=== PATIENT | male | born 1945 | race Caucasian/White ===

== ENCOUNTER → 2019-01-06 | Outpatient (CLI) | payer MEDICARE, OTHER ==
[~2019-01-06] MED LIST: ALEVE PO; ALPRAZOLAM0.25 MG PO; ASPIRIN81 M1 PO; ATORVASTATIN CA40 MG PO; B-121000 MCG PO; CARVEDILOL6.25 MG PO; CO Q-10200 MG PO; CRESTOR20 MG PO; CYCLOBENZAPRINE10 MG PO; KEFLEX500 MG PO; METHOCARBAMOL750 MG PO; METOPROLOL SUCC50 MG PO; METOPROLOL TART50 MG PO; MEXILETINE HCL150 MG PO; MIRTAZAPINE7.5 MG; PACERONE200 MG PO; PANTOPRAZOLE SO40 MG PO; PLAVIX75 MG PO; POTASSIUM PO; PROTONIX IV40 MG PO; RAMIPRIL2.5 MG PO; RANEXA500 MG PO; SUCRALFATE1 GM PO; TYLENOL PM EX-1 EACH; URINOZINC PROS1 EACH PO
--- NOTE | 2019-01-06 17:38 | Diagnostic Imaging Report ---
CT LUMBAR SPINE WO HISTORY: Low back pain COMPARISON: Report from lumbar CT myelogram dated 07/27/2016 (images not available at time of dictation) TECHNIQUE: Axial CT images of the lumbar spine were obtained without contrast. Coronal and sagittal reconstructions obtained from the axial data. One or more of the following dose reduction techniques were used: Automated exposure control, adjustment of the mA and/or kV according to patient size, and/or utilization of iterative reconstruction technique. DISCUSSION: Postsurgical changes related to posterior fusion at L3-L4 with laminectomies from L2 to L4 are noted. Associated hardware streak artifacts obscure some details. There is no evidence for hardware failure or loosening. Mild bone demineralization also limits evaluation. There are 5 nonrib-bearing lumbar vertebral bodies. Lumbar lordosis is preserved. There is no significant scoliosis. No definite acute fracture or compression deformity is seen. Chronic, segmented right L1 transverse process may be from remote trauma. Chronic, osseous defects in the bilateral medial iliac bones are likely from remote surgery. No gross spinal canal mass is seen. Posterior incision changes are present. There is paraspinal muscle atrophy at the lumbosacral junction. The paravertebral and paraspinal soft tissues are otherwise unremarkable. Mild to moderate multilevel spondylotic changes are present. Mild bilateral sacroiliac degenerative changes are present as well. L1-L2: There is mild retrolisthesis of L1 on L2. No gross canal or foraminal stenosis. L2-L3: There is mild retrolisthesis of L2 on L3. Mild to moderate right and moderate left foraminal stenoses due to disc bulge and facet arthrosis. No gross canal stenosis. L3-L4: Fusion level without gross foraminal stenosis. The spinal canal is poorly visualized due to streak artifact. L4-L5: The L4 and L5 vertebral bodies are partially fused. No gross canal or foraminal stenosis. L5-S1: Moderate right and mild to moderate left foraminal stenoses due to disc bulge and facet arthrosis. No gross canal stenosis. There is prominent facet arthrosis on the right. IMPRESSION: 1. Postsurgical changes related to posterior fusion at L3-L4 with laminectomies from L2 to L4. The L4 and L5 vertebral bodies are also partially fused. 2. Otherwise, no definite acute osseous abnormalities. 3. Mild to moderate multilevel spondylosis without gross canal stenosis. Please note that the spinal canal at L3-L4 is poorly visualized due to streak artifact. 4. Multilevel degenerative foraminal stenoses - mild to moderate right and moderate left at L2-L3; moderate right and mild to moderate left at L5-S1. 5. Mild bilateral sacroiliac degenerative changes. Signed by: Dr. Pal Hernandez M.D. on 01/06/2019 5:35 PM
== END ==
LOC: CT 14:37
PROVIDERS: ATTEND Family Medicine
DX: M54.5 Low back pain (principal)
CPT/HCPCS: 72131

== ENCOUNTER 2019-07-17 16:47 | Observation (INO) | payer MEDICARE, OTHER ==
[~2019-07-17] VITALS: Ht 177.8 cm; Wt 98.4 kg
--- OUTSIDE RECORDS SUMMARY | 2019-07-17 16:52 | XMS REPORT | Summary of Care ---
Author Author [facility] Organization [facility] Address Unknown Phone Unavailable Encounter PORSHA Campos(ELIAZAR) [id number] Date(s): 01/03/16 - 01/03/16 [facility] [address] [employer] provided by [employer] [facility] [employer] [place] [address]- Discharge Disposition: Home Attending Physician: Asia Aguirre MD Admitting Physician: Asia Aguirre MD Referring Physician: Asia Aguirre MD Vital Signs 1 2 3 Most recent to oldest [Reference Range]: 177.8 cm (01/03/16 9:51 AM) Height 159/74 mmHg *HI* (01/03/16 8:45 PM) 159/74 mmHg *HI* (01/03/16 8:30 PM) 159/74 mmHg *HI* (01/03/16 8:15 PM) Blood Pressure [90-140/60-90 mmHg] 91.818 kg (01/03/16 9:51 AM) Weight 29.04 m2 (01/03/16 9:51 AM) Body Mass Index Problem List Condition Effective Dates Status Health Status Informant Acid Resolved reflux(Confirmed) Angina(Confirmed) Resolved Anxiety(Confirmed) Resolved Coronary artery Resolved bypass grafts x 4(Confirmed) Rotator cuff 06/09/10 Active syndrome1, 2 1Data migrated from [employer] on 06/18/15. 2Data migrated from [employer] on 06/18/15. Allergies, Adverse Reactions, Alerts Substance Reaction Severity Status NKDA Active Medications aspirin 325 mg tablet 325 mg=1 tab, PO, Daily, # 30 tab, 0 Refill(s) Start Date: 01/03/16 Status: Ordered carvedilol 6.25 mg, 1 tab, Route: PO, Drug form: TAB, Daily, Dosing Weight 91.818, kg, Star t date: 01/04/16 9:00:00, Duration: 30 day, Stop date: 02/02/16 9:00:00 Notes: Give with food. (Same As: Coreg) Start Date: 01/04/16 Stop Date: 01/04/16 Status: Discontinued Crestor 20 mg, Route: PO, Drug form: TAB, Daily, Dosing Weight 91.818, kg, Start date: 0 01/04/16 9:00:00, Duration: 30 day, Stop date: 02/02/16 9:00:00 Start Date: 01/04/16 Stop Date: 01/03/16 Status: Discontinued gabapentin 300 mg oral capsule 300 mg, 1 cap, Route: PO, Drug form: CAP, BID, Dosing Weight 91.818, kg, Start d ate: 01/03/16 17:00:00, Duration: 30 day, Stop date: 02/02/16 9:00:00 Notes: (Same as: Neurontin) Start Date: 01/03/16 Stop Date: 01/04/16 Status: Discontinued Lipitor 40 mg, 1 tab, Route: PO, Drug form: TAB, Daily, Start date: 01/04/16 9:00:00, Du ration: 30 day, Stop date: 02/02/16 9:00:00 Notes: (Same as: Lipitor) Start Date: 01/04/16 Stop Date: 01/04/16 Status: Discontinued morphine Sulfate 2 mg, Route: IVP, ONCE, Dosing Weight 91.818, kg, Start date: 01/03/16 15:20:00, Stop date: 01/03/16 15:20:00 Start Date: 01/03/16 Stop Date: 01/03/16 Status: Completed [place] 5/325 oral tablet 1 tab, Route: PO, Drug Form: TAB, Dosing Weight 91.818, kg, Q4H, PRN Pain Score 1-3, Start date: 01/03/16 13:44:00, Duration: 30 day, Stop date: 02/02/16 13:43: 00 Notes: (Same as: [place] 325/5) Do not exceed 4gm/day of acetaminophen. Start Date: 01/03/16 Stop Date: 01/04/16 Status: Discontinued pantoprazole 40 mg, 1 tab, Route: PO, Drug form: ECTAB, Daily, Dosing Weight 91.818, kg, Star t date: 01/04/16 9:00:00, Duration: 30 day, Stop date: 02/02/16 9:00:00 Notes: Tablet should not be chewed or crushed.(Same as: Protonix) Start Date: 01/04/16 Stop Date: 01/04/16 Status: Discontinued ramipril 2.5 mg, 1 cap, Route: PO, Drug form: CAP, BID, Dosing Weight 91.818, kg, Start d ate: 01/03/16 17:00:00, Duration: 30 day, Stop date: 02/02/16 9:00:00 Notes: (Same as:Altace) Start Date: 01/03/16 Stop Date: 01/04/16 Status: Discontinued Sodium Chloride 0.9% IV 1,000 mL 1,000 mL, Rate: 100 ml/hr, Infuse over: 10 hr, Route: IV, Dosing Weight 95.455 k g, Total Volume: 1,000, Start date: 01/03/16 9:27:00, Duration: 30 day, Stop ramila e: 02/02/16 9:26:00 Start Date: 01/03/16 Stop Date: 01/04/16 Status: Discontinued Results BLOOD BANK RESULTS Most recent to 1 oldest [Reference Range]: ABO/Rh B POS *Unknown* (01/03/16 9:25 AM) Antibody Scrn Negative (01/03/16 9:25 AM) ELECTROLYTES Most recent to 1 oldest [Reference Range]: Sodium Lvl [135-145 139 mEq/L mEq/L] (01/03/16 9:54 AM) Potassium Lvl 4.1 mEq/L [3.5-5.1 mEq/L] (01/03/16 9:54 AM) Chloride Lvl [95-109 106 mEq/L mEq/L] (01/03/16 9:54 AM) CO2 [24-32 mEq/L] 26 mEq/L (01/03/16 9:54 AM) AGAP [10.0-20.0 11.1 mEq/L mEq/L] (01/03/16 9:54 AM) CHEM PANEL Most recent to 1 oldest [Reference Range]: Creatinine Lvl 1.22 mg/dL [0.50-1.40 mg/dL] (01/03/16 9:54 AM) eGFR 60 mL/min/1.73m2 1 *NA* (01/03/16 9:54 AM) BUN [7-22 mg/dL] 29 mg/dL *HI* (01/03/16 9:54 AM) Glucose Lvl [70-99 104 mg/dL mg/dL] *HI* (01/03/16 9:54 AM) Calcium Lvl 8.8 mg/dL [8.5-10.5 mg/dL] (01/03/16 9:54 AM) Magnesium Lvl 2.2 mg/dL [1.8-2.4 mg/dL] (01/03/16 9:54 AM) 1Result Comment: The eGFR is calculated using the CKD-EPI formula. In most young, healthy individuals the eGFR will be >90 mL/min/1.73m2. The eGFR declines with age. An eGFR of 60-89 may be normal in some populations, particularly the elderly, for whom the CKD-EPI formula has not been extensively validated. Use of the eGFR is not recommended in the following populations: Individuals with unstable creatinine concentrations, including patients and those with serious co-morbid conditions. Patients with extremes in muscle mass or diet. The data above are obtained from the National Kidney Disease Education Program ( NKDEP) which additionally recommends that when the eGFR is used in patients with extremes of body mass index for purposes of drug dosing, the eGFR should be mul tiplied by the estimated BMI. HEMATOLOGY Most recent to 1 oldest [Reference Range]: WBC [3.7-10.4 K/CMM] 11.4 K/CMM *HI* (01/03/16 9:54 AM) RBC [4.70-6.10 4.97 M/CMM M/CMM] (01/03/16 9:54 AM) Hgb [14.0-18.0 g/dL] 14.1 g/dL (01/03/16 9:54 AM) Hct [42.0-54.0 %] 43.7 % (01/03/16 9:54 AM) MCV [80.0-94.0 fL] 88.0 fL (01/03/16 9:54 AM) MCH [27.0-31.0 pg] 28.3 pg (01/03/16 9:54 AM) MCHC [32.0-36.0 32.1 g/dL g/dL] (01/03/16 9:54 AM) RDW [11.5-14.5 %] 14.2 % (01/03/16 9:54 AM) Platelet [133-450 180 K/CMM K/CMM] (01/03/16 9:54 AM) MPV [7.4-10.4 fL] 7.4 fL (01/03/16 9:54 AM) Segs [45.0-75.0 %] 80.1 % *HI* (01/03/16 9:54 AM) Lymphocytes 9.0 % [20.0-40.0 %] *LOW* (01/03/16 9:54 AM) Monocytes [2.0-12.0 6.4 % %] (01/03/16 9:54 AM) Eosinophils [0.0-4.0 1.5 % %] (01/03/16 9:54 AM) Basophils [0.0-1.0 3.0 % %] *HI* (01/03/16 9:54 AM) Segs-Bands # 9.1 K/CMM [1.5-8.1 K/CMM] *HI* (01/03/16 9:54 AM) Lymphocytes # 1.0 K/CMM [1.0-5.5 K/CMM] (01/03/16 9:54 AM) Monocytes # [0.0-0.8 0.7 K/CMM K/CMM] (01/03/16 9:54 AM) Eosinophils # 0.2 K/CMM [0.0-0.5 K/CMM] (01/03/16 9:54 AM) Basophils # [0.0-0.2 0.3 K/CMM K/CMM] *HI* (01/03/16 9:54 AM) RBC Morph Normal (01/03/16 9:54 AM) Plt Morph Normal (01/03/16 9:54 AM) PT [12.0-14.7 14.0 seconds seconds] (01/03/16 9:54 AM) INR [0.85-1.17] 1.05 (01/03/16 9:54 AM) POC Activated 195 seconds Clotting Time *NA* (01/03/16 3:05 PM) PTT [22.9-35.8 27.7 seconds seconds] (01/03/16 9:54 AM) Immunizations No data available for this section Procedures Procedure Date Related Diagnosis Body Site Coronary artery bypass grafts x 5 Fusion Incision and drainage of wound Knee joint operation Laminectomy Shoulder joint operations Social History Social History Type Response Smoking Status Smoker, current status unknown; Type: Cigarettes; Exposure to Tobacco Smoke None; Cigarette Smoking Last 365 Days No; Reg Smoking Cessation Counseling No Assessment and Plan No data available for this section
--- OUTSIDE RECORDS SUMMARY | 2019-07-17 16:52 | XMS REPORT ---
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 Active Problem Stented coronary artery Z95.5 Active Problem Patient unable to exercise Z72.89 Active Problem Essential (primary) hypertension I10 Active Problem Hypercholesteremia E78.00 Active Problem Carotid bruit R09.89 Active Problem 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 Active Problem Abnormal EKG R94.31 Active Assessment 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
--- OUTSIDE RECORDS SUMMARY | 2019-07-17 16:52 | XMS REPORT | Summary of Care ---
Author Author [facility] Outpatient Imaging [facility] Address Unknown Phone Unavailable Encounter HQ Dilma_delvin(FIN) [id number] Date(s): 08/05/17 - 08/05/17 [facility] [address] [facility], [address] [place] [phone] Discharge Disposition: Home or Self Care Attending Physician: Buddy Plummer MD Vital Signs No data available for this section Problem List Condition Effective Dates Status Health Status Informant Acid Resolved reflux(Confirmed) Angina(Confirmed) Resolved Anxiety(Confirmed) Resolved 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 2Data migrated from [employer] on 06/18/15. Allergies, Adverse Reactions, Alerts Substance Reaction Severity Status NKDA Active Medications No data available for this section Results No data available for this section Immunizations No data available for this section [...]
--- OUTSIDE RECORDS SUMMARY | 2019-07-17 16:52 | XMS REPORT | Summary of Care ---
Author Author [facility] Organization [facility] Address Unknown Phone Unavailable Encounter HQ Jacobontr_delvin(FIN) [id number] Date(s): 07/05/19 - 07/05/19 [facility] [address] [place] [address]- Discharge Disposition: Home or Self Care Attending Physician: Tawanda Roberson MD Referring Physician: Tawanda Roberson MD Vital Signs No data available for this section Problem List Condition Effective Dates Status Health Status Informant Acid Resolved reflux(Confirmed) Angina(Confirmed) Resolved Anxiety(Confirmed) Resolved 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 2Data migrated from [employer] on 06/18/15. Allergies, Adverse Reactions, Alerts No Known Medication Allergies Medications No data available for this section Results No data available for this section Immunizations No data available for this section Procedures Procedure Date Related Diagnosis Body Site Status Coronary artery bypass grafts x 5 Completed Fusion Completed Incision and drainage of wound Completed Knee joint operation Completed Laminectomy Completed Shoulder joint operations Completed Social History Social History Type Response Smoking Status Smoker, current status unknown; Type: Cigarettes; Exposure to Tobacco Smoke None; Cigarette Smoking Last 365 Days No; Reg Smoking Cessation Counseling No entered on: 01/03/16 Assessment and Plan No data available for this section
--- OUTSIDE RECORDS SUMMARY | 2019-07-17 16:52 | XMS REPORT | Summary of Care ---
Author Organization Unknown Address Unknown Phone Unavailable Encounter HQ Beth(ELIAZAR) [id number] Date(s): 06/29/14 - 07/02/14 [facility] [id number] [place] [address] - [facility] Discharge Disposition: Home Physician Attending: Deric Brandon DO Physician Admitting: Deric Brandon DO Reason for Visit SEPSIS, ABDOMINAL PAIN Vital Signs 1 2 3 Most recent to oldest [Reference Range]: 175.26 cm (06/30/14 5:13 PM) 177.8 cm (06/29/14 12:42 AM) Height 97 kg (07/02/14 6:31 AM) 97.9 kg (07/01/14 7:52 AM) 100.7 kg (07/01/14 12:00 AM) Current Weight 98.6 DegF (07/02/14 12:27 PM) 98.1 DegF (07/02/14 8:19 AM) 98.6 DegF (07/02/14 4:07 AM) Temperature Oral [96.4-99.1 DegF] 149 mmHg *HI* (07/02/14 12:27 PM) 145 mmHg *HI* (07/02/14 8:19 AM) 121 mmHg (07/02/14 4:07 AM) Systolic Blood Pressure [90-140 mmHg] 75 mmHg (07/02/14 12:27 PM) 73 mmHg (07/02/14 8:19 AM) 55 mmHg *LOW* (07/02/14 4:07 AM) Diastolic Blood Pressure [60-90 mmHg] 19 BRMIN (07/02/14 12:27 PM) 18 BRMIN (07/02/14 8:19 AM) 20 BRMIN (07/02/14 4:07 AM) Respiratory Rate [14-20 BRMIN] 76 bpm (07/02/14 12:27 PM) 75 bpm (07/02/14 8:19 AM) 79 bpm (07/02/14 4:07 AM) Peripheral Pulse Rate [60-100 bpm] 95.455 kg (06/30/14 5:13 PM) 100 kg (06/29/14 12:42 AM) Weight 31.08 m2 (06/30/14 5:13 PM) 31.63 m2 (06/29/14 12:42 AM) Body Mass Index Problem List Condition Effective Dates Status Health Status Informant 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 (Same as: Tylenol) Start Date: 06/29/14 Stop Date: 07/02/14 Status: Discontinued AMIODarone + Dextrose 5% in Water 100 mL 150 mg, Route: IVPB, ONCE, Dosing Weight 100, kg, Start date: 06/29/14 20:11:00, Stop date: 06/29/14 20:11:00 Start Date: 06/29/14 Stop Date: 06/29/14 Status: Deleted AMIODarone 900 mg in D5W 500 ml IV 900 mg 900 mg, 482 mL, Rate: 1 mg/min for 6 hours, then reduce to 0.5 mg/min, Dosing We ight 100, kg, Route: IV, Total Volume: 482, Start Date: 06/29/14 20:11:00, Durat ion: 30 day, Stop date: 07/29/14 20:10:00, Replace Every: 24 hr Start Date: 06/29/14 Stop Date: 06/29/14 Status: Deleted aspirin 81 mg tablet, enteric coated 81 mg, 1 tab, Route: PO, Drug form: ECTAB, Daily, Dosing Weight 100, kg, Start d ate: 06/29/14 9:00:00, Duration: 30 day, Stop date: 07/28/14 9:00:00 Notes: Do not crush or chew.(Same As: Ecotrin) Start Date: 06/29/14 Stop Date: 07/02/14 Status: Discontinued atropine 0.5 mg, 5 mL, Route: IVP, Drug form: INJ, ONCE, Dosing Weight 95.455, kg, PRN Br adycardia, Start date: 07/02/14 0:12:00, for symptomatic bradycardia HR <40 Start Date: 07/02/14 Stop Date: 07/02/14 Status: Discontinued carvedilol 12.5 mg, 1 tab, Route: PO, Drug form: TAB, Daily, Dosing Weight 100, kg, Start d ate: 06/29/14 9:00:00, Stop date: 07/28/14 9:00:00 Notes: Give with food. (Same As: Coreg) Start Date: 06/29/14 Stop Date: 06/30/14 Status: Discontinued Cipro I.V. 400 mg/200 mL intravenous solution 400 mg, 200 mL, Route: IVPB, Drug form: INJ, [id number], Dosing Weight 100, kg, Sta rt date: 06/29/14 8:00:00, Duration: 30 day, Stop date: 07/28/14 20:00:00 Notes: Do not refrigerate Start Date: 06/29/14 Stop Date: 07/02/14 Status: Discontinued cloNIDine 0.1 mg oral tablet 0.1 mg, 1 tab, Route: PO, Drug form: TAB, Q8H, Dosing Weight 100, kg, PRN Elevat ed BP, Start date: 06/29/14 7:21:00, Duration: 30 day, Stop date: 07/29/14 7:20: 00, SBP >160 Notes: (Same As: Catapres) Start Date: 06/29/14 Stop Date: 07/02/14 Status: Discontinued Colace 100 mg oral capsule 100 mg=1 cap, PO, BID, Constipation, # 60 cap, 0 Refill(s) Start Date: 07/02/14 Status: Ordered Coreg 25 mg, 2 tab, Route: PO, Drug form: TAB, Q12H, Dosing Weight 95.455, kg, Start d ate: 06/30/14 21:00:00, Duration: 30 day, Stop date: 07/30/14 9:00:00 Notes: Give with food. (Same As: Coreg) Start Date: 06/30/14 Stop Date: 07/02/14 Status: Discontinued Coreg 12.5 mg, 1 tab, Route: PO, Drug form: TAB, ONCE, Dosing Weight 95.455, kg, Start date: 06/30/14 18:07:00, Stop date: 06/30/14 18:07:00 Notes: Give with food. (Same As: Coreg) Start Date: 06/30/14 Stop Date: 06/30/14 Status: Completed Crestor 20 mg, 2 tab, Route: PO, Drug form: TAB, Daily, Dosing Weight 100, kg, Start ramila e: 06/29/14 9:00:00, Duration: 30 day, Stop date: 07/28/14 9:00:00 Notes: (Same As: Crestor) Start Date: 06/29/14 Stop Date: 07/02/14 Status: Discontinued Dulcolax Laxative 10 mg, 1 supp, Route: UT, Drug form: SUPP, ONCE, Dosing Weight 100, kg, PRN as n eeded for constipation, Priority: STAT, Start date: 06/29/14 17:06:00 Notes: (Same As: Dulcolax, Bisco-Lax) Start Date: 06/29/14 Stop Date: 06/29/14 Status: Completed enoxaparin 30 mg, 0.3 mL, Route: SUB-Q, Drug form: INJ, [id number], Dosing Weight 100, kg, St art date: 06/29/14 8:00:00, Duration: 30 day, Stop date: 07/28/14 8:00:00 Notes: (Same as: Lovenox) Start Date: 06/29/14 Stop Date: 07/02/14 Status: Discontinued Flagyl 500 mg, 100 mL, Route: IVPB, Drug form: INJ, [id number], Dosing Weight 100, kg, Star t date: 06/29/14 8:00:00, Duration: 30 day, Stop date: 07/29/14 4:00:00 Notes: (Same as: Flagyl) Avoid alcohol. Start Date: 06/29/14 Stop Date: 07/02/14 Status: Discontinued Fleet Mineral Oil Enema 133 mL, Route: UT, Dosing Weight 100, kg, ONCE, Start date: 06/30/14 16:15:00, S top date: 06/30/14 16:15:00 Start Date: 06/30/14 Stop Date: 06/30/14 Status: Deleted gabapentin 300 mg oral capsule 300 mg, 1 cap, Route: PO, Drug form: CAP, BID, Dosing Weight 100, kg, Start date : 06/29/14 9:00:00, Duration: 30 day, Stop date: 07/28/14 17:00:00 Notes: (Same as: Neurontin) Start Date: 06/29/14 Stop Date: 07/02/14 Status: Discontinued lactulose\\water - enema 1,000 ml, Route: UT, Drug Form: CHILO, Dosing Weight 100, kg, Q6H, Start date: 11:15:00, Duration: 1 day, Stop date: 07/01/14 6:00:00, 300 mL lactulose + 700 mL water Special Instructions: 300 mL lactulose + 700 mL water Notes: Lactulose 300ml, Water for Irrigation 700ml - total [id number] Start Date: 06/30/14 Stop Date: 07/01/14 Status: Completed MiraLax 17 gm, 1 pkt, Route: PO, Drug form: PWDR, BID, Dosing Weight 95.455, kg, Start d ate: 07/01/14 17:00:00, Duration: 30 day, Stop date: 07/31/14 9:00:00 Notes: Dissolve in 8 oz of water or juice.(Same as: Miralax) Start Date: 07/01/14 Stop Date: 07/02/14 Status: Discontinued morphine Sulfate 2 mg, Route: IVP, Drug form: INJ, ONCE, Dosing Weight 100, kg, Priority: STAT, S tart date: 06/29/14 5:19:00, Stop date: 06/29/14 5:19:00 Start Date: 06/29/14 Stop Date: 06/29/14 Status: Completed morphine Sulfate 2 mg, Route: IVP, Drug form: INJ, ONCE, Dosing Weight 100, kg, Priority: STAT, S tart date: 06/29/14 2:54:00, Stop date: 06/29/14 2:54:00 Start Date: 06/29/14 Stop Date: 06/29/14 Status: Completed morphine Sulfate 4 mg, Route: IVP, ONCE, Dosing Weight 100, kg, Priority: STAT, Start date: 06/29 0:47:00, Stop date: 06/29/14 0:47:00 Start Date: 06/29/14 Stop Date: 06/29/14 Status: Completed morphine Sulfate 2 mg, 1 mL, Route: IVP, Drug form: INJ, Q4H, Dosing Weight 100, kg, PRN Pain, St art date: 06/29/14 7:21:00, Duration: 30 day, Stop date: 07/29/14 7:20:00 Notes: (Same as:MORPhine Sulfate) Start Date: 06/29/14 Stop Date: 07/02/14 Status: Discontinued nitroglycerin 0.4 mg sublingual tablet 0.4 mg, 1 tab, Route: SL, Drug form: TAB, Q5Min, Dosing Weight 95.455, kg, PRN C hest Pain, Start date: 07/02/14 0:11:00, Duration: 30 day, Stop date: 08/01/14 0 :10:00 Notes: (Same as:Nitroquick, Nitrostat)"Do Not Crush" Sublingual tablet Start Date: 07/02/14 Stop Date: 07/02/14 Status: Discontinued NS 1000 mL 1,000 mL, Rate: 100 ml/hr, Infuse over: 10 hr, Route: IV, Dosing Weight 100 kg, Total Volume: 1,000, Start date: 06/29/14 7:21:00, Duration: 30 day, Stop date: 07/29/14 7:20:00 Start Date: 06/29/14 Stop Date: 06/29/14 Status: Discontinued ondansetron 4 mg, Route: IVP, ONCE, Dosing Weight 100, kg, Priority: STAT, Start date: 06/29 0:47:00, Stop date: 06/29/14 0:47:00 Start Date: 06/29/14 Stop Date: 06/29/14 Status: Completed pantoprazole 40 mg, 1 tab, Route: PO, Drug form: ECTAB, Daily, Dosing Weight 100, kg, Start d ate: 06/29/14 9:00:00, Duration: 30 day, Stop date: 07/28/14 9:00:00 Notes: Tablet should not be chewed or crushed.(Same as: Protonix) Start Date: 06/29/14 Stop Date: 07/02/14 Status: Discontinued Plavix 75 mg, 1 tab, Route: PO, Drug form: TAB, Daily, Dosing Weight 100, kg, Start ramila e: 07/01/14 9:00:00, Duration: 30 day, Stop date: 07/30/14 9:00:00 Notes: (Same As: Plavix) Start Date: 07/01/14 Stop Date: 07/02/14 Status: Discontinued polyethylene glycol 3350 oral powder for reconstitution 17 gm, PO, BID, # 12 ea, 0 Refill(s) Start Date: 07/02/14 Status: Ordered potassium chloride 40 mEq, 2 tab, Route: PO, Drug form: ERTAB, ONCE, Dosing Weight 95.455, kg, Star t date: 07/02/14 10:45:00, Stop date: 07/02/14 10:45:00 Notes: (Same as: K-Dur 20)"Do Not Crush" With food and full glass of water Start Date: 07/02/14 Stop Date: 07/02/14 Status: Completed potassium chloride 20 mEq, 100 mL, Route: IVPB, Drug form: INJ, Q2H, Dosing Weight 100, kg, Total d ose=40 mEq, Start date: 06/29/14 8:00:00, Duration: 2 doses or times, Stop date: 06/29/14 10:00:00 Notes: (Same as: KCL) Infuse no faster than 10 mEq/hr if given peripherally. Start Date: 06/29/14 Stop Date: 06/29/14 Status: Completed ramipril 2.5 mg, 1 cap, Route: PO, Drug form: CAP, BID, Dosing Weight 100, kg, Start date : 06/29/14 9:00:00, Duration: 30 day, Stop date: 07/28/14 17:00:00 Notes: (Same as:Altace) Start Date: 06/29/14 Stop Date: 07/02/14 Status: Discontinued Saline Flush 0.9% 5 ml, Route: IVP, Drug Form: INJ, Dosing Weight 100, kg, PRN, PRN Line Flush, St art date: 06/29/14 8:39:00, Duration: 30 day, Stop date: 07/29/14 8:38:00 Start Date: 06/29/14 Stop Date: 06/29/14 Status: Deleted Saline Flush 0.9% 5 ml, Route: IVP, Drug Form: INJ, Dosing Weight 100, kg, Q12H, Start date: 06/29 9:00:00, Duration: 30 day, Stop date: 07/28/14 21:00:00 Notes: (Same as: BD Posiflush) Start Date: 06/29/14 Stop Date: 07/02/14 Status: Discontinued Saline Flush 0.9% 5 ml, Route: IVP, Drug Form: INJ, Dosing Weight 100, kg, PRN, PRN Line Flush, St art date: 06/29/14 8:39:00, Duration: 30 day, Stop date: 07/29/14 8:38:00 Start Date: 06/29/14 Stop Date: 06/29/14 Status: Deleted Saline Flush 0.9% 10 mL, Route: IVP, Drug Form: INJ, Dosing Weight 100, kg, PRN, PRN Line Flush, S tart date: 06/29/14 0:47:00, Duration: 30 day, Stop date: 07/29/14 0:46:00 Notes: (Same as: BD Posiflush) Start Date: 06/29/14 Stop Date: 07/02/14 Status: Discontinued Sodium Chloride 0.9% (Bolus) IV 1,000 mL, 1,000 ml/hr, Infuse Over: 1 hr, Route: IV, ONCE, Priority: STAT, Dosin g Weight 100 kg, Start date: 06/29/14 1:08:00, Duration: 1 doses or times, Stop date: 06/29/14 1:08:00 Start Date: 06/29/14 Stop Date: 06/29/14 Status: Completed Sodium Chloride 0.9% (Bolus) IV 1,000 mL, 1,000 ml/hr, Infuse Over: 1 hr, Route: IV, ONCE, Priority: STAT, Dosin g Weight 100 kg, Start date: 06/29/14 1:08:00, Duration: 1 doses or times, Stop date: 06/29/14 1:08:00 Start Date: 06/29/14 Stop Date: 06/29/14 Status: Completed Sodium Chloride 0.9% (Bolus) IV 1,000 mL, 1,000 ml/hr, Infuse Over: 1 hr, Route: IV, 1,000, Drug form: INJ, ONCE , Priority: STAT, Dosing Weight 100 kg, Start date: 06/29/14 5:09:00, Duration: 1 doses or times, Stop date: 06/29/14 5:09:00 Start Date: 06/29/14 Stop Date: 06/29/14 Status: Completed Sodium Chloride 0.9% (Bolus) IV 1,000 mL, Infuse Over: 1 hr, Route: IV, ONCE, Priority: STAT, Dosing Weight 100 kg, Start date: 06/29/14 0:47:00, Duration: 1 doses or times, Stop date: 4 0:47:00 Start Date: 06/29/14 Stop Date: 06/29/14 Status: Completed Sodium Chloride 0.9% IV 1,000 mL 1,000 mL, Rate: 50 ml/hr, Infuse over: 20 hr, Route: IV, Dosing Weight 100 kg, T otal Volume: 1,000, Start date: 06/29/14 0:47:00, Stop date: 07/29/14 0:46:00 Start Date: 06/29/14 Stop Date: 07/02/14 Status: Discontinued Sodium Chloride 0.9% IV 1000 mL 1,000 mL, Rate: 125 ml/hr, Infuse over: 8 hr, Route: IV, Dosing Weight 100 kg, T otal Volume: 1,000, Start date: 06/29/14 8:39:00, Duration: 30 day, Stop date: 1 8:38:00 Start Date: 06/29/14 Stop Date: 06/29/14 Status: Deleted vancomycin 2 gm, 500 mL, Route: IVPB, Drug form: SOLN, ONCE, Dosing Weight 100, kg, Priorit y: STAT, Start date: 06/29/14 1:50:00, Stop date: 06/29/14 1:50:00 Notes: Same as: Vancocin Infusion rate< 1000 mg: infuse over 1 [id number] - 1500 mg: infuse over 1.5 [id number] - 2000 mg: infuse over 2 hours> 2001 mg: infuse over 2.5 hours Start Date: 06/29/14 Stop Date: 06/29/14 Status: Completed Zofran 4 mg, 2 mL, Route: IVP, Drug form: INJ, Q8H, Dosing Weight 100, kg, PRN as neede d for nausea/vomiting, Priority: STAT, Start date: 06/29/14 7:21:00, Duration: 3 0 day, Stop date: 07/29/14 7:20:00 Notes: (Same as: Zofran) Start Date: 06/29/14 Stop Date: 07/02/14 Status: Discontinued Zosyn 4.5 gm, Route: IVPB, Drug form: INJ, ONCE, Dosing Weight 100, kg, Priority: STAT , Start date: 06/29/14 1:50:00, Stop date: 06/29/14 1:50:00 Start Date: 06/29/14 Stop Date: 06/29/14 Status: Completed Results ELECTROLYTES Most recent to 1 2 3 4 oldest [Reference Range]: Sodium Lvl [135-145 140 mEq/L 137 mEq/L 138 mEq/L mEq/L] (07/02/14 5:58 AM) (06/30/14 6:05 AM) (06/29/14 9:46 AM) Potassium Lvl 3.4 mEq/L 5.0 mEq/L 4.8 mEq/L [3.5-5.1 mEq/L] *LOW* (06/30/14 6:05 AM) (06/29/14 9:46 AM) (07/02/14 5:58 AM) Chloride Lvl [95-109 110 mEq/L 111 mEq/L 110 mEq/L mEq/L] *HI* *HI* *HI* (07/02/14 5:58 AM) (06/30/14 6:05 AM) (06/29/14 9:46 AM) CO2 [24-32 mEq/L] 21 mEq/L 20 mEq/L 20 mEq/L *LOW* *LOW* *LOW* (07/02/14 5:58 AM) (06/30/14 6:05 AM) (06/29/14 9:46 AM) AGAP [10.0-20.0 12.4 mEq/L 11.0 mEq/L 12.8 mEq/L mEq/L] (07/02/14 5:58 AM) (06/30/14 6:05 AM) (06/29/14 9:46 AM) CHEM PANEL Most recent to 1 2 3 4 oldest [Reference Range]: Creatinine Lvl 1.0 mg/dL 1.1 mg/dL 1.9 mg/dL 1.9 mg/dL [0.5-1.4 mg/dL] (07/02/14 5:58 AM) (06/30/14 6:05 AM) *HI* *HI* (06/29/14 9:46 AM) (06/29/14 9:46 AM) eGFR 76 mL/min/1.73m2 1 68 mL/min/1.73m2 2 35 mL/min/1.73m2 3 35 mL/min/1.73m2 4 *NA* *NA* *NA* *NA* (07/02/14 5:58 AM) (06/30/14 6:05 AM) (06/29/14 9:46 AM) (06/29/14 9:46 AM) BUN [7-22 mg/dL] 16 mg/dL 28 mg/dL 28 mg/dL (07/02/14 5:58 AM) *HI* *HI* (06/30/14 6:05 AM) (06/29/14 9:46 AM) B/C Ratio [6-25] 16 10 10 (07/02/14 5:58 AM) (06/29/14 5:15 AM) (06/29/14 12:58 AM) Glucose Lvl [70-99 128 mg/dL 5 140 mg/dL 6 149 mg/dL 7 mg/dL] *HI* *HI* *HI* (07/02/14 5:58 AM) (06/30/14 6:05 AM) (06/29/14 9:46 AM) Total Protein 5.0 g/dL 7.6 g/dL 7.6 g/dL [6.4-8.4 g/dL] *LOW* (06/29/14 5:15 AM) (06/29/14 12:58 AM) (07/02/14 5:58 AM) Albumin Lvl [3.5-5.0 2.0 g/dL 3.5 g/dL 3.4 g/dL g/dL] *LOW* (06/29/14 5:15 AM) *LOW* (07/02/14 5:58 AM) (06/29/14 12:58 AM) Globulin [2.0-4.0 3.0 g/dL 4.1 g/dL 4.2 g/dL g/dL] (07/02/14 5:58 AM) *HI* *HI* (06/29/14 5:15 AM) (06/29/14 12:58 AM) A/G Ratio [0.7-1.6] 0.7 0.9 0.8 (07/02/14 5:58 AM) (06/29/14 5:15 AM) (06/29/14 12:58 AM) Calcium Lvl 7.5 mg/dL 7.2 mg/dL 7.8 mg/dL 7.8 mg/dL [8.5-10.5 mg/dL] *LOW* *LOW* *LOW* *LOW* (07/02/14 5:58 AM) (06/30/14 6:05 AM) (06/29/14 9:46 AM) (06/29/14 9:46 AM) Phosphorus [2.5-4.5 3.3 mg/dL 5.0 mg/dL mg/dL] (06/29/14 9:46 AM) *HI* (06/29/14 12:58 AM) Magnesium Lvl 3.9 mg/dL 8 4.7 mg/dL 9 4.6 mg/dL 10 [1.8-2.4 mg/dL] *CRIT* *CRIT* *CRIT* (06/29/14 9:46 AM) (06/29/14 5:15 AM) (06/29/14 12:58 AM) ALT [0-65 unit/L] 19 unit/L 35 unit/L 34 unit/L (07/02/14 5:58 AM) (06/29/14 5:15 AM) (06/29/14 12:58 AM) AST [0-37 unit/L] 20 unit/L 38 unit/L 39 unit/L (07/02/14 5:58 AM) *HI* *HI* (06/29/14 5:15 AM) (06/29/14 12:58 AM) Alk Phos [39-136 73 unit/L 151 unit/L 151 unit/L unit/L] (07/02/14 5:58 AM) *HI* *HI* (06/29/14 5:15 AM) (06/29/14 12:58 AM) Bili Total [0.2-1.3 0.3 mg/dL 0.6 mg/dL 0.6 mg/dL mg/dL] (07/02/14 5:58 AM) (06/29/14 5:15 AM) (06/29/14 12:58 AM) Amylase Lvl [25-115 79 unit/L unit/L] (06/29/14 12:58 AM) Lipase Lvl [73-393 254 unit/L unit/L] (06/29/14 12:58 AM) Lactic Acid Lvl 5.9 mMol/L 11 [0.5-2.2 mMol/L] *CRIT* (06/29/14 4:55 AM) 1Result Comment: The eGFR is calculated [...] be mul tiplied by the estimated BMI. 2Result Comment: The eGFR is calculated using the [...] be mul tiplied by the estimated BMI. 3Result Comment: The eGFR is calculated using the [...] be mul tiplied by the estimated BMI. 4Result Comment: The eGFR is calculated using the [...] be mul tiplied by the estimated BMI. 5Interpretive Data: Adult reference range values reflect the clinical guidelines of the [place] [employer]. 6Interpretive Data: Adult reference range values reflect the clinical guidelines of the [place] [employer]. 7Interpretive Data: Adult reference range values reflect the clinical guidelines of the [place] [employer]. 8Result Comment: Critical Result(s) called to feli rangel at 06/29/2014 10:47 by sb. Read back OK. 9Result Comment: Critical Result(s) called to ed shah at 06/29/2014 06:48 by/elke. Read back OK. 10Result Comment: Critical Result(s) called to ed hair at 06/29/2014 02:20 by/elke. Read back OK. 11Result Comment: Critical Result(s) called to ed shah at 06/29/2014 06:48 by/elke. Read back OK. CARDIAC ENZYMES Most recent to 1 2 3 4 oldest [Reference Range]: Total CK [12-191 129 unit/L 130 unit/L 124 unit/L unit/L] (06/30/14 6:05 AM) (06/29/14 4:00 PM) (06/29/14 9:46 AM) CK MB [0.5-3.6 4.0 ng/mL 8.0 ng/mL 8.9 ng/mL ng/mL] *HI* *HI* *HI* (06/30/14 6:05 AM) (06/29/14 4:00 PM) (06/29/14 9:46 AM) CK MB Index 3.1 6.2 1.3 [0.0-2.5] *HI* *HI* (06/29/14 12:58 AM) (06/30/14 6:05 AM) (06/29/14 4:00 PM) Troponin-I 0.46 ng/mL 1.33 ng/mL 12 1.11 ng/mL 13 [0.00-0.40 ng/mL] *HI* *CRIT* *CRIT* (06/30/14 6:05 AM) (06/29/14 4:00 PM) (06/29/14 9:46 AM) 12Result Comment: Critical Result(s) called to Bradly Ayala at 06/29/2014 16:54 by GW. Read back OK. 13Result Comment: Critical Result(s) called to nahum ayala at 06/29/2014 10:50 by sb. Read back OK. URINE AND STOOL Most recent to 1 2 3 4 oldest [Reference Range]: UA Turbidity [Clear] Slight Clear *ABN* (06/29/14 5:15 AM) (06/29/14 3:30 PM) UA Color [Yellow] Yellow Yellow *NA* *NA* (06/29/14 3:30 PM) (06/29/14 5:15 AM) UA pH [5.0-8.0] 5.0 5.0 (06/29/14 3:30 PM) (06/29/14 5:15 AM) UA Spec Grav 1.018 1.032 [<=1.030] (06/29/14 3:30 PM) *HI* (06/29/14 5:15 AM) UA Glucose [Negative Negative mg/dL Negative mg/dL mg/dL] *NA* *NA* (06/29/14 3:30 PM) (06/29/14 5:15 AM) UA Blood [Negative] Negative Negative (06/29/14 3:30 PM) (06/29/14 5:15 AM) UA Ketones [Negative Negative mg/dL Negative mg/dL mg/dL] *NA* *NA* (06/29/14 3:30 PM) (06/29/14 5:15 AM) UA Protein [Negative Negative mg/dL Negative mg/dL mg/dL] (06/29/14 3:30 PM) (06/29/14 5:15 AM) UA Urobilinogen 2.0 mg/dL 2.0 mg/dL [0.1-1.0 mg/dL] *HI* *HI* (06/29/14 3:30 PM) (06/29/14 5:15 AM) UA Bili [Negative] Negative Negative *NA* *NA* (06/29/14 3:30 PM) (06/29/14 5:15 AM) UA Leuk Est Small Negative [Negative] *ABN* (06/29/14 5:15 AM) (06/29/14 3:30 PM) UA Nitrite Negative Negative [Negative] (06/29/14 3:30 PM) (06/29/14 5:15 AM) UA WBC [0-5 /HPF] 1 /HPF (06/29/14 5:15 AM) UA RBC [0-2 /HPF] 2 /HPF <1 /HPF (06/29/14 3:30 PM) (06/29/14 5:15 AM) UA Sq Epi [Few /LPF] Occasional /LPF Occasional /LPF *NA* *NA* (06/29/14 3:30 PM) (06/29/14 5:15 AM) UA Mucus [None Seen Few /LPF Few /LPF /LPF] *NA* *NA* (06/29/14 3:30 PM) (06/29/14 5:15 AM) HEMATOLOGY Most recent to 1 2 3 4 oldest [Reference Range]: WBC [3.7-10.4 K/CMM] 11.2 K/CMM 17.4 K/CMM 23.6 K/CMM *HI* *HI* *HI* (07/02/14 5:58 AM) (06/30/14 6:05 AM) (06/29/14 5:15 AM) RBC [4.70-6.10 3.58 M/CMM 4.94 M/CMM 4.66 M/CMM M/CMM] *LOW* (06/30/14 6:05 AM) *LOW* (07/02/14 5:58 AM) (06/29/14 5:15 AM) Hgb [14.0-18.0 g/dL] 11.3 g/dL 14.8 g/dL 14.1 g/dL *LOW* (06/30/14 6:05 AM) (06/29/14 5:15 AM) (07/02/14 5:58 AM) Hct [42.0-54.0 %] 32.1 % 46.3 % 42.8 % *LOW* (06/30/14 6:05 AM) (06/29/14 5:15 AM) (07/02/14 5:58 AM) MCV [80.0-94.0 fL] 89.6 fL 93.6 fL 91.8 fL (07/02/14 5:58 AM) (06/30/14 6:05 AM) (06/29/14 5:15 AM) MCH [27.0-31.0 pg] 31.5 pg 30.0 pg 30.3 pg *HI* (06/30/14 6:05 AM) (06/29/14 5:15 AM) (07/02/14 5:58 AM) MCHC [32.0-36.0 35.1 g/dL 32.1 g/dL 33.0 g/dL g/dL] (07/02/14 5:58 AM) (06/30/14 6:05 AM) (06/29/14 5:15 AM) RDW [11.5-14.5 %] 13.7 % 14.7 % 14.3 % (07/02/14 5:58 AM) *HI* (06/29/14 5:15 AM) (06/30/14 6:05 AM) Platelet [133-450 173 K/CMM 123 K/CMM 223 K/CMM K/CMM] (07/02/14 5:58 AM) *LOW* (06/29/14 9:46 AM) (06/30/14 6:05 AM) MPV [7.4-10.4 fL] 7.3 fL 8.4 fL 7.1 fL *LOW* (06/30/14 6:05 AM) *LOW* (07/02/14 5:58 AM) (06/29/14 5:15 AM) Segs [45.0-75.0 %] 85.3 % 84.4 % 89.1 % *HI* *HI* *HI* (07/02/14 5:58 AM) (06/30/14 6:05 AM) (06/29/14 5:15 AM) Lymphocytes 7.6 % 4.8 % 2.3 % [20.0-40.0 %] *LOW* *LOW* *LOW* (07/02/14 5:58 AM) (06/30/14 6:05 AM) (06/29/14 5:15 AM) Monocytes [2.0-12.0 6.4 % 10.7 % 8.6 % %] (07/02/14 5:58 AM) (06/30/14 6:05 AM) (06/29/14 5:15 AM) Eosinophils [0.0-4.0 0.5 % %] (07/02/14 5:58 AM) Basophils [0.0-1.0 0.2 % 0.1 % 0.2 % %] (07/02/14 5:58 AM) (06/30/14 6:05 AM) (06/29/14 12:58 AM) Segs-Bands # 9.5 K/CMM 14.7 K/CMM 21.0 K/CMM [1.5-8.1 K/CMM] *HI* *HI* *HI* (07/02/14 5:58 AM) (06/30/14 6:05 AM) (06/29/14 5:15 AM) Lymphocytes # 0.9 K/CMM 0.8 K/CMM 0.6 K/CMM [1.0-5.5 K/CMM] *LOW* *LOW* *LOW* (07/02/14 5:58 AM) (06/30/14 6:05 AM) (06/29/14 5:15 AM) Monocytes # [0.0-0.8 0.7 K/CMM 1.9 K/CMM 2.0 K/CMM K/CMM] (07/02/14 5:58 AM) *HI* *HI* (06/30/14 6:05 AM) (06/29/14 5:15 AM) Eosinophils # 0.1 K/CMM [0.0-0.5 K/CMM] (07/02/14 5:58 AM) Basophils # [0.0-0.2 0.1 K/CMM K/CMM] (06/29/14 12:58 AM) RBC Morph Normal (06/30/14 6:05 AM) Plt Morph Normal (06/30/14 6:05 AM) PT [12.0-14.7 15.7 seconds seconds] *HI* (06/29/14 12:58 AM) INR [0.85-1.17] 1.24 14 *HI* (06/29/14 12:58 AM) PTT [22.9-35.8 48.1 seconds 15 53.1 seconds 16 seconds] *HI* *HI* (06/29/14 9:46 AM) (06/29/14 12:58 AM) 14Interpretive Data: RECOMMENDED RANGES FOR PROTIME INR: 2.0-3.0 for most medical and surgical thromboembolic states. 2.5-3.5 for artificial heart valves and recurrent embolism. INR SHOULD BE USED ONLY FOR PATIENTS ON STABLE ANTICOAGULANT THERAPY. 15Interpretive Data: Heparin Therapeutic Range: 57 - 92 Seconds 16Interpretive Data: Heparin Therapeutic Range: 57 - 92 Seconds BACTERIAL - SEROLOGY Most recent to 1 2 3 4 oldest [Reference Range]: MRSA by PCR Negative 17 (06/29/14 6:55 AM) 17Interpretive Data: Interpretive Data: The [employer] MRSA assay is a qualitative test for the direct detection of nasal colonization with methicillin-resistant Staphylococcus aureus (MRSA) to aid in the prevention and control of MRSA infections in healthcare settings. A positive result does not indicate an infection or require treatment. A negative result does not exclude colonization or infection. The polymerase chain reaction (PCR) assay detects a proprietary sequence indicat rodney of the integration of the SCCmec cassette into the Staphylococcus aureus chr omosome, indicating the presence of MRSA DNA. The assay utilizes FDA cleared IV D reagents. Performance characteristics have been verified by the [facility]. The [facility] is authorized under the Clinical Laboratory Improvement Amendment of 1 988 (CLIA-88) to perform high complexity testing. Medications Administered During Your Visit No data available for this section Immunizations No data available for this section Procedures Procedure Type Body Site Date of Procedure Related Diagnosis Coronary artery bypass grafts x 5 Fusion Incision and drainage of wound Knee joint operation Laminectomy Shoulder joint operations Social History Social History Type Response Assessment and Plan Extracted from: Title: Clinical Document Author: Maryuri Anderson MD Date: 07/01/14 [facility] SUBJECTIVE Patient Examed, Chart Reviewed, events noted. OBJECTIVE Vitals and Temp: VitalsTmp(F)[id number] 07/01 13:00----65033/[id number]--- 07/01 12:0098.846913/[id number]--- 07/01 11:00----[id number]/320803--- 07/01 10:00----[id number]--- 07/01 09:00----[id number]--- 24 Hr Tmax: 98.5F (36.94c) at 07/01 05:00Vital Signs are the last 5 in the past 48 hours. Input/Output RecordInOutBal 09/0724hr Tot 1305 326 979 06/624hr Tot 3644 1581 1218 Labs (Last four charted values) WBC H 17.4(JUN 30)H 23.6(JUN 29)H 28.0(JUN 29) Hgb 14.8(JUN 30)14.1(JUN 29)15.6(JUN 29) Hct 46.3(JUN 30)42.8(JUN 29)48.4(JUN 29) Plt L 123(JUN 30)223(JUN 29)231(JUN 29)290(JUN 29) Na 137(JUN 30)138(JUN 29)138(JUN 29)137(JUN 29) K 5.0(JUN 30)4.8(JUN 29)L 3.3(JUN 29)L 3.4(JUN 29) CO2 L 20(JUN 30)L 20(JUN 29)L 19(JUN 29)L 20(JUN 29) Cl H 111(JUN 30)H 110(JUN 29)102(JUN 29)100(JUN 29) Cr 1.1(JUN 30)H 1.9(JUN 29)H 1.9(JUN 29)H 2.6(JUN 29) BUN H 28(JUN 30)H 28(JUN 29)H 25(JUN 29)H 25(JUN 29) Glucose Random H 140(JUN 30)H 149(JUN 29)H 179(JUN 29)H 174(JUN 29) Mg C 3.9(JUN 29)C 4.7(JUN 29)C 4.6(JUN 29) Phos 3.3(JUN 29)H 5.0(JUN 29) Ca L 7.2(JUN 30)L 7.8(JUN 29)L 7.8(JUN 29)9.1(JUN 29) PT H 15.7(JUN 29) INR H 1.24(JUN 29) PTT H 48.1(JUN 29)H 53.1(JUN 29) Troponin H 0.46(JUN 30)C 1.33(JUN 29)C 1.11(JUN 29)<0.02(JUN 29) CK MB H 4.0(JUN 30)H 8.0(JUN 05)H 8.9(JUN 05)0.9(JUN 05) Total CK 129(JUN 30)130(JUN 29)124(JUN 29)68(SEP 05) ASSESSMENT & EXAM GENERAL APPEARANCE: The patient is alert and oriented x4, resting in bed in no acute distress. HEENT: Pupils were equal, round, and reactive to light. NECK: Supple, no lymphadenopathy, and no jugular venous distention. CARDIOVASCULAR: S1, S2 normal. No gallops, rubs. LUNGS: Clear to auscultation. No rales, rhonchi or wheezes. ABDOMEN: Obese, mild diffuse tenderness, worse in the left lower quadrant with some mild guarding. EXTREMITIES: No cyanosis, clubbing, no edema noted. DIAGNOSES & PROBLEMS 1. Elevated cardiac enzymes- improving probably related to demand ischemia 2.Normal LV function on echo 3- severe costipation PLAN & TREATMENT PT HAD GOOD BM, DOING WELL, TRANSFER TO FLOOR. OOB Scheduled Meds (12):aspirin (aspirin 81 mg tablet, enteric coated), carvedilol (Coreg), ciprofloxacin (Cipro I.V. 400 mg/200 mL intravenous solution), clopidogrel (Plavix), enoxaparin, gabapentin (gabapentin 300 mg oral capsule), metroNIDAZOLE (Flagyl), pantoprazole, polyethylene glycol 3350 (MiraLax), ramipril, rosuvastatin (Crestor), sodium chloride (Saline Flush 0.9%) Unscheduled Meds: None PRN Meds (5):acetaminophen, cloNIDine (cloNIDine 0.1 mg oral tablet), morphine Sulfate, ondansetron (Zofran), sodium chloride (Saline Flush 0.9%) One Time Meds (2):(Completed) carvedilol (Coreg), (Deleted) mineral oil (Fleet Mineral Oil Enema) Continuous Infusions (1):Sodium Chloride 0.9% IV 1,000 mL
--- OUTSIDE RECORDS SUMMARY | 2019-07-17 16:52 | XMS REPORT | Summary of Care ---
Author Author [facility] Organization [facility] Address Unknown Phone Unavailable Encounter HQ Dilma_delvin(FIN) [id number] Date(s): 08/12/17 - 08/12/17 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 2Data migrated from [email or web address] on 06/18/15. Allergies, Adverse Reactions, Alerts Substance [...]
--- OUTSIDE RECORDS SUMMARY | 2019-07-17 16:52 | XMS REPORT ---
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
--- OUTSIDE RECORDS SUMMARY | 2019-07-17 16:52 | XMS REPORT | Continuity of Care Document ---
Author Author [employer] Organization [employer] Address Unknown Phone Unavailable Care Team Providers Care Teleprinter Installer Name Role Phone [employer] [facility] Unavailable Unavailable Problems Problem Status Onset Date Classification Date Reported Comments Source M17.11 Active 06/23/2019 [facility] J32.8 - OTHER CHRONIC SINUSITIS Active 03/10/2016 [facility] VENTRICULAR PREMATURE DEPLORIZATION Active 12/12/2015 [facility] CCL/EPS, PVC ABLATION/CARTO/VVENOUS Active 12/12/2015 [facility] SEPSIS, ABDOMINAL PAIN Active 06/28/2014 [facility] ABDOMINAL PAIN, WEAKNESS Active 06/28/2014 [facility] SOB Active 04/23/2012 [facility] Rotator cuff syndrome (disorder) Active 06/09/2010 Problem 07/07/2019 Data migrated from [employer] on 06/18/15. Data migrated from [employer] on 06/18/15. [facility] Gastroesophageal reflux disease (disorder) Resolved Problem 07/07/2019 [facility] Angina (disorder) Resolved Problem 07/07/2019 [facility] Anxiety (finding) Resolved Problem 07/07/2019 [facility] Coronary artery bypass grafts x 4 (procedure) Resolved Problem 07/07/2019 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 Problem 10/30/2017 Gilda Gibbons PVCs (premature ventricular contractions) Active Problem 10/30/2017 Gilda Gibbons AICD present, double chamber Active Problem 10/30/2017 Gilda Gibbons Stented coronary artery Active Problem 10/30/2017 Gilda Gibbons Patient unable to exercise Active Problem 10/30/2017 Gilda Gibbons Essential (primary) hypertension Active Problem 10/30/2017 Gilda Gibbons Hypercholesteremia Active Problem 10/30/2017 Gilda Gibbons Carotid bruit Active Problem 10/30/2017 Gilda Gibbons CAD of autologous bypass graft Active Problem 10/30/2017 Gilda Gibbons Abnormal EKG Active Problem 10/30/2017 Gilda Gibbons DJD (degenerative joint disease) of knee Active Problem 10/30/2017 Gilda Gibbons MONTAÑO (dyspnea on exertion) Active Problem 10/30/2017 Gilda Gibbons SEPTICEMIA NOS Active [facility] UNILATERAL PRIMARY OSTEOARTHRITIS, RIGHT Active [facility] Medications Medication Details Route Status Patient Instructions Ordering Provider Order Date Source Lipitor 40 mg, 1 tab, Route: PO, Drug form: TAB, Daily, Start date: 01/04/16 9:00:00, Duration: 30 day, Stop date: 02/02/16 9:00:00Notes: (Same as: Lipitor) Inactive 01/04/2016 [facility] Crestor 20 mg, Route: PO, Drug form: TAB, Daily, Dosing Weight 91.818, kg, Start date: 01/04/16 9:00:00, Duration: 30 day, Stop date: 02/02/16 9:00:00 No Longer Active 01/04/2016 [facility] pantoprazole 40 mg, 1 tab, Route: PO, Drug form: ECTAB, Daily, Dosing Weight 91.818, kg, Start date: 01/04/16 9:00:00, Duration: 30 day, Stop date: 02/02/16 9:00:00Notes: Tablet should not be chewed or crushed. ( Same as: Protonix) Inactive 01/04/2016 [facility] carvedilol 6.25 mg, 1 tab, Route: PO, Drug form: TAB, Daily, Dosing Weight 91.818, kg, Start date: 01/04/16 9:00:00, Duration: 30 day, Stop date: 02/02/16 9:00:00Notes: Give with food. (Same As: Coreg) Inactive 01/04/2016 [facility] Ramipril 2.5 mg, 1 cap, Route: PO, Drug form: CAP, BID, Dosing Weight 91.818, kg, Start date: 01/03/16 17:00:00, Duration: 30 day, Stop date: 02/02/16 9:00:00Notes: (Same as:Altace) No Longer Active 01/03/2016 [facility] gabapentin 300 MG Oral Capsule 300 mg, 1 cap, Route: PO, Drug form: CAP, BID, Dosing Weight 91.818, kg, Start date: 01/03/16 17:00:00, Duration: 30 day, Stop date: 02/02/16 9:00:00Notes: (Same as: Neurontin) No Longer Active 01/03/2016 [facility] Morphine 2 mg, Route: IVP, ONCE, Dosing Weight 91.818, kg, Start date: 01/03/16 15:20:00, Stop date: 01/03/16 15:20:00 Inactive 01/03/2016 [facility] Aspirin 325 MG Oral Tablet 325 mg=1 tab, PO, Daily, # 30 tab, 0 Refill(s) Active 01/03/2016 [facility] Acetaminophen 325 MG / Hydrocodone Bitartrate 5 MG Oral Tablet [[place] 5/325] 1 tab, Route: PO, Drug Form: TAB, Dosing Weight 91.818, kg, Q4H, PRN Pain Score 1-3, Start date: 01/03/16 13:44:00, Duration: 30 day, Stop date: 02/02/16 13:43:00Notes: (Same as: [place] 325/5) Do not exceed 4gm/day of acetaminophen. No Longer Active 01/03/2016 [facility] Sodium Chloride 0.9% IV 1,000 mL 1,000 mL, Rate: 100 ml/hr, Infuse over: 10 hr, Route: IV, Dosing Weight 95.455 kg, Total Volume: 1,000, Start date: 01/03/16 9:27:00, Duration: 30 day, Stop date: 02/02/16 9:26:00 No Longer Active 01/03/2016 [facility] Potassium Chloride 40 mEq, 2 tab, Route: PO, Drug form: ERTAB, ONCE, Dosing Weight 95.455, kg, Start date: 07/02/14 10:45:00, Stop date: 07/02/14 10:45:00Notes: (Same as: K-Dur 20) "Do Not Crush" With food and full glass of water Inactive 07/02/2014 [facility] Docusate Sodium 100 MG Oral Capsule [Colace] 100 mg=1 cap, PO, BID, Constipation, # 60 cap, 0 Refill(s) Active 07/02/2014 [facility] polyethylene glycol 3350 oral powder for reconstitution 17 gm, PO, BID, # 12 ea, 0 Refill(s) Active 07/02/2014 [facility] Atropine 0.5 mg, 5 mL, Route: IVP, Drug form: INJ, ONCE, Dosing Weight 95.455, kg, PRN Bradycardia, Start date: 07/02/14 0:12:00, for symptomatic bradycardia HR Inactive 07/02/2014 [facility] Nitroglycerin 0.4 MG Sublingual Tablet 0.4 mg, 1 tab, Route: SL, Drug form: TAB, Q5Min, Dosing Weight 95.455, kg, PRN Chest Pain, Start date: 07/02/14 0:11:00, Duration: 30 day, Stop date: 08/01/14 0:10:00Notes: (Same as:Nitroquick, Nitrostat) "Do Not Crush" Sublingual tablet Inactive 07/02/2014 [facility] Miralax 17 gm, 1 pkt, Route: PO, Drug form: PWDR, BID, Dosing Weight 95.455, kg, Start date: 07/01/14 17:00:00, Duration: 30 day, Stop date: 07/31/14 9:00:00Notes: Dissolve in 8 oz of water or juice. (Same as: Miralax) No Longer Active 07/01/2014 [facility] Plavix 75 mg, 1 tab, Route: PO, Drug form: TAB, Daily, Dosing Weight 100, kg, Start date: 07/01/14 9:00:00, Duration: 30 day, Stop date: 07/30/14 9:00:00Notes: (Same As: Plavix) No Longer Active 07/01/2014 [facility] Coreg 25 mg, 2 tab, Route: PO, Drug form: TAB, Q12H, Dosing Weight 95.455, kg, Start date: 06/30/14 21:00:00, Duration: 30 day, Stop date: 07/30/14 9:00:00Notes: Give with food. (Same As: Coreg) No Longer Active 07/01/2014 [facility] Coreg 12.5 mg, 1 tab, Route: PO, Drug form: TAB, ONCE, Dosing Weight 95.455, kg, Start date: 06/30/14 18:07:00, Stop date: 06/30/14 18:07:00Notes: Give with food. (Same As: Coreg) Inactive 06/30/2014 [facility] Fleet Mineral Oil Enema 133 mL, Route: TN, Dosing Weight 100, kg, ONCE, Start date: 06/30/14 16:15:00, Stop date: 06/30/14 16:15:00 Inactive 06/30/2014 [facility] Lactulose 1,000 ml, Route: TN, Drug Form: CHILO, Dosing Weight 100, kg, Q6H, Start date: 06/30/14 11:15:00, Duration: 1 day, Stop date: 07/01/14 6:00:00, 300 mL lactulose + 700 mL waterSpecial Instructions: 300 mL lactulose + 700 mL waterNotes: Lactulose 300ml, Water for Irrigation 700ml - total [id number] No Longer Active 06/30/2014 [facility] AMIODarone 900 mg in D5W 500 ml IV 900 mg 900 mg, 482 mL, Rate: 1 mg/min for 6 hours, then reduce to 0.5 mg/min, Dosing Weight 100, kg, Route: IV, Total Volume: 482, Start Date: 06/29/14 20:11:00, Duration: 30 day, Stop date: 07/29/14 20:10:00, Replace Every: 24 hr Inactive 06/30/2014 [facility] Amiodarone 150 mg, Route: IVPB, ONCE, Dosing Weight 100, kg, Start date: 06/29/14 20:11:00, Stop date: 06/29/14 20:11:00 Inactive 06/30/2014 [facility] Dulcolax Laxative 10 mg, 1 supp, Route: TN, Drug form: SUPP, ONCE, Dosing Weight 100, kg, PRN as needed for constipation, Priority: STAT, Start date: 06/29/14 17:06:00Notes: (Same As: Dulcolax, Bisco-Lax) Inactive 06/29/2014 [facility] Crestor 20 mg, 2 tab, Route: PO, Drug form: TAB, Daily, Dosing Weight 100, kg, Start date: 06/29/14 9:00:00, Duration: 30 day, Stop date: 07/28/14 9:00:00Notes: (Same As: Crestor) No Longer Active 06/29/2014 [facility] Ramipril 2.5 mg, 1 cap, Route: PO, Drug form: CAP, BID, Dosing Weight 100, kg, Start date: 06/29/14 9:00:00, Duration: 30 day, Stop date: 07/28/14 17:00:00Notes: (Same as:Altace) No Longer Active 06/29/2014 [facility] pantoprazole 40 mg, 1 tab, Route: PO, Drug form: ECTAB, Daily, Dosing Weight 100, kg, Start date: 06/29/14 9:00:00, Duration: 30 day, Stop date: 07/28/14 9:00:00Notes: Tablet should not be chewed or crushed. (Same as: Protonix) No Longer Active 06/29/2014 [facility] gabapentin 300 MG Oral Capsule 300 mg, 1 cap, Route: PO, Drug form: CAP, BID, Dosing Weight 100, kg, Start date: 06/29/14 9:00:00, Duration: 30 day, Stop date: 07/28/14 17:00:00Notes: (Same as: Neurontin) No Longer Active 06/29/2014 [facility] Aspirin 81 MG Enteric Coated Tablet 81 mg, 1 tab, Route: PO, Drug form: ECTAB, Daily, Dosing Weight 100, kg, Start date: 06/29/14 9:00:00, Duration: 30 day, Stop date: 07/28/14 9:00:00Notes: Do not crush or chew. (Same As: Ecotrin) No Longer Active 06/29/2014 [facility] carvedilol 12.5 mg, 1 tab, Route: PO, Drug form: TAB, Daily, Dosing Weight 100, kg, Start date: 06/29/14 9:00:00, Stop date: 07/28/14 9:00:00Notes: Give with food. (Same As: Coreg) No Longer Active 06/29/2014 [facility] Saline Flush 0.9% 5 ml, Route: IVP, Drug Form: INJ, Dosing Weight 100, kg, Q12H, Start date: 06/29/14 9:00:00, Duration: 30 day, Stop date: 07/28/14 21:00:00Notes: (Same as: BD Posiflush) No Longer Active 06/29/2014 [facility] Saline Flush 0.9% 5 ml, Route: IVP, Drug Form: INJ, Dosing Weight 100, kg, PRN, PRN Line Flush, Start date: 06/29/14 8:39:00, Duration: 30 day, Stop date: 07/29/14 8:38:00 Inactive 06/29/2014 [facility] Sodium Chloride 0.154 MEQ/ML Injectable Solution 1,000 mL, Rate: 125 ml/hr, Infuse over: 8 hr, Route: IV, Dosing Weight 100 kg, Total Volume: 1,000, Start date: 06/29/14 8:39:00, Duration: 30 day, Stop date: 07/29/14 8:38:00 Inactive 06/29/2014 [facility] Ciprofloxacin 2 MG/ML Injectable Solution [Cipro] 400 mg, 200 mL, Route: IVPB, Drug form: INJ, [id number], Dosing Weight 100, kg, Start date: 06/29/14 8:00:00, Duration: 30 day, Stop date: 07/28/14 20:00:00Notes: Do not refrigerate No Longer Active 06/29/2014 [facility] Flagyl 500 mg, 100 mL, Route: IVPB, Drug form: INJ, [id number], Dosing Weight 100, kg, Start date: 06/29/14 8:00:00, Duration: 30 day, Stop date: 07/29/14 4:00:00Notes: (Same as: Flagyl) Avoid alcohol. No Longer Active 06/29/2014 [facility] Enoxaparin 30 mg, 0.3 mL, Route: SUB-Q, Drug form: INJ, [id number], Dosing Weight 100, kg, Start date: 06/29/14 8:00:00, Duration: 30 day, Stop date: 07/28/14 8:00:00Notes: (Same as: Lovenox) No Longer Active 06/29/2014 [facility] Potassium Chloride 20 mEq, 100 mL, Route: IVPB, Drug form: INJ, Q2H, Dosing Weight 100, kg, Total dose=40 mEq, Start date: 06/29/14 8:00:00, Duration: 2 doses or times, Stop date: 06/29/14 10:00:00Notes: (Same as: KCL) Infuse no faster than 10 mEq/hr if given peripherally. Inactive 06/29/2014 [facility] Acetaminophen 650 mg, 2 tab, Route: PO, Drug form: TAB, Q6H, Dosing Weight 100, kg, PRN Fever, Start date: 06/29/14 7:21:00, Duration: 30 day, Stop date: 07/29/14 7:20:00Notes: Do not exceed 4 gm/day. (Same as: T gangaenol) No Longer Active 06/29/2014 [facility] Zofran 4 mg, 2 mL, Route: IVP, Drug form: INJ, Q8H, Dosing Weight 100, kg, PRN as needed for nausea/vomiting, Priority: STAT, Start date: 06/29/14 7:21:00, Duration: 30 day, Stop date: 07/29/14 7:20:00Notes: (Same as: Zofran) No Longer Active 06/29/2014 [facility] Clonidine Hydrochloride 0.1 MG Oral Tablet 0.1 mg, 1 tab, Route: PO, Drug form: TAB, Q8H, Dosing Weight 100, kg, PRN Elevated BP, Start date: 06/29/14 7:21:00, Duration: 30 day, Stop date: 07/29/14 7:20:00, SBP >160Notes: (Same As: Catapres) No Longer Active 06/29/2014 [facility] NS 1000 mL 1,000 mL, Rate: 100 ml/hr, Infuse over: 10 hr, Route: IV, Dosing Weight 100 kg, Total Volume: 1,000, Start date: 06/29/14 7:21:00, Duration: 30 day, Stop date: 07/29/14 7:20:00 Inactive 06/29/2014 [facility] Morphine 2 mg, 1 mL, Route: IVP, Drug form: INJ, Q4H, Dosing Weight 100, kg, PRN Pain, Start date: 06/29/14 7:21:00, Duration: 30 day, Stop date: 07/29/14 7:20:00Notes: (Same as:MORPhine Sulfate) No Longer Active 06/29/2014 [facility] Morphine 2 mg, Route: IVP, Drug form: INJ, ONCE, Dosing Weight 100, kg, Priority: STAT, Start date: 06/29/14 5:19:00, Stop date: 06/29/14 5:19:00 Inactive 06/29/2014 [facility] Sodium Chloride 0.154 MEQ/ML Injectable Solution 1,000 mL, 1,000 ml/hr, Infuse Over: 1 hr, Route: IV, 1,000, Drug form: INJ, ONCE, Priority: STAT, Dosing Weight 100 kg, Start date: 06/29/14 5:09:00, Duration: 1 doses or times, Stop date: 06/29/14 5:09:00 Inactive 06/29/2014 [facility] Morphine 2 mg, Route: IVP, Drug form: INJ, ONCE, Dosing Weight 100, kg, Priority: STAT, Start date: 06/29/14 2:54:00, Stop date: 06/29/14 2:54:00 Inactive 06/29/2014 [facility] Vancomycin 2 gm, 500 mL, Route: IVPB, Drug form: SOLN, ONCE, Dosing Weight 100, kg, Priority: STAT, Start date: 06/29/14 1:50:00, Stop date: 06/29/14 1:50:00Notes: Same as: Vancocin Infusion rate 2001 mg: infuse over 2.5 hours Inactive 06/29/2014 [facility] Zosyn 4.5 gm, Route: IVPB, Drug form: INJ, ONCE, Dosing Weight 100, kg, Priority: STAT, Start date: 06/29/14 1:50:00, Stop date: 06/29/14 1:50:00 Inactive 06/29/2014 [facility] Sodium Chloride 0.154 MEQ/ML Injectable Solution 1,000 mL, 1,000 ml/hr, Infuse Over: 1 hr, Route: IV, ONCE, Priority: STAT, Dosing Weight 100 kg, Start date: 06/29/14 1:08:00, Duration: 1 doses or times, Stop date: 06/29/14 1:08:00 Inactive 06/29/2014 [facility] Ondansetron 4 mg, Route: IVP, ONCE, Dosing Weight 100, kg, Priority: STAT, Start date: 06/29/14 0:47:00, Stop date: 06/29/14 0:47:00 Inactive 06/29/2014 [facility] Morphine 4 mg, Route: IVP, ONCE, Dosing Weight 100, kg, Priority: STAT, Start date: 06/29/14 0:47:00, Stop date: 06/29/14 0:47:00 Inactive 06/29/2014 [facility] Sodium Chloride 0.154 MEQ/ML Injectable Solution 1,000 mL, Infuse Over: 1 hr, Route: IV, ONCE, Priority: STAT, Dosing Weight 100 kg, Start date: 06/29/14 0:47:00, Duration: 1 doses or times, Stop date: 06/29/14 0:47:00 Inactive 06/29/2014 [facility] Saline Flush 0.9% 10 mL, Route: IVP, Drug Form: INJ, Dosing Weight 100, kg, PRN, PRN Line Flush, Start date: 06/29/14 0:47:00, Duration: 30 day, Stop date: 07/29/14 0:46:00Notes: (Same as: BD Posiflush) No Longer Active 06/29/2014 [facility] Nitrostat TAKE 1 TABLET UNDER THE TONGUE NEEDED CHEST PAIN Sublingual Active 0.4 MG Sublingual as needed (prn) Shai Gibbons Metoprolol Tartrate 1 tablet Orally Active 50 mg Orally Twice a day Shai Gibbons Clopidogrel Bisulfate TAKE 1 TABLET BY MOUTH ONCE A DAY by mouth Active 75 MG by mouth daily Shai Gibbons Atorvastatin Calcium 1 tablet Orally Active 20 MG Orally Once a day Shai Gibbons Allergies, Adverse Reactions, Alerts Substance Category Reaction Severity Reaction type Status Date Reported Comments Source No Known Medication Allergies Assertion Drug allergy [facility] Immunizations No Data Provided for This Section Results Order Name Results Value Reference Range Date Interpretation Comments Source HEMATOLOGY POC Activated Clotting Time 195 01/03/2016 [facility] CHEM PANEL Calcium Lvl 8.8 8.5 - 10.5 01/03/2016 [facility] CHEM PANEL eGFR 60 01/03/2016 Result Comment: The eGFR is calculated using the [...] from the National Kidney Disease Education Program (NKDEP) which additionally recommends that when the eGFR is used in patients with extremes of body mass index for purposes of drug dosing, the eGFR should be multiplied by the estimated BMI. [facility] CHEM PANEL BUN 29 7 - 22 01/03/2016 [facility] CHEM PANEL CO2 26 24 - 32 01/03/2016 [facility] CHEM PANEL Chloride Lvl 106 95 - 109 01/03/2016 [facility] CHEM PANEL Potassium Lvl 4.1 3.5 - 5.1 01/03/2016 [facility] CHEM PANEL Glucose Lvl 104 70 - 99 01/03/2016 [facility] CHEM PANEL Creatinine Lvl 1.22 0.50 - 1.40 01/03/2016 [facility] CHEM PANEL Sodium Lvl 139 135 - 145 01/03/2016 [facility] CHEM PANEL AGAP 11.1 10.0 - 20.0 01/03/2016 [facility] CHEM PANEL Magnesium Lvl 2.2 1.8 - 2.4 01/03/2016 [facility] HEMATOLOGY PTT 27.7 22.9 - 35.8 01/03/2016 [facility] HEMATOLOGY PT 14.0 12.0 - 14.7 01/03/2016 [facility] HEMATOLOGY INR 1.05 0.85 - 1.17 01/03/2016 [facility] HEMATOLOGY MPV 7.4 7.4 - 10.4 01/03/2016 [facility] HEMATOLOGY Platelet 180 133 - 450 01/03/2016 [facility] HEMATOLOGY RDW 14.2 11.5 - 14.5 01/03/2016 [facility] HEMATOLOGY MCH 28.3 27.0 - 31.0 01/03/2016 [facility] HEMATOLOGY MCHC 32.1 32.0 - 36.0 01/03/2016 [facility] HEMATOLOGY RBC 4.97 4.70 - 6.10 01/03/2016 [facility] HEMATOLOGY MCV 88.0 80.0 - 94.0 01/03/2016 [facility] HEMATOLOGY Hgb 14.1 14.0 - 18.0 01/03/2016 [facility] HEMATOLOGY Hct 43.7 42.0 - 54.0 01/03/2016 [facility] HEMATOLOGY WBC 11.4 3.7 - 10.4 01/03/2016 [facility] HEMATOLOGY Segs 80.1 45.0 - 75.0 01/03/2016 [facility] HEMATOLOGY Plt Morph Normal (01/03/16 9:54 AM) 01/03/2016 [facility] HEMATOLOGY RBC Morph Normal (01/03/16 9:54 AM) 01/03/2016 [facility] HEMATOLOGY Monocytes 6.4 2.0 - 12.0 01/03/2016 [facility] HEMATOLOGY Lymphocytes 9.0 20.0 - 40.0 01/03/2016 [facility] HEMATOLOGY Segs-Bands # 9.1 1.5 - 8.1 01/03/2016 [facility] HEMATOLOGY Basophils 3.0 0.0 - 1.0 01/03/2016 [facility] HEMATOLOGY Eosinophils 1.5 0.0 - 4.0 01/03/2016 [facility] HEMATOLOGY Lymphocytes # 1.0 1.0 - 5.5 01/03/2016 [facility] HEMATOLOGY Basophils # 0.3 0.0 - 0.2 01/03/2016 [facility] HEMATOLOGY Eosinophils # 0.2 0.0 - 0.5 01/03/2016 [facility] HEMATOLOGY Monocytes # 0.7 0.0 - 0.8 01/03/2016 [facility] BLOOD BANK RESULTS ABO/Rh B POS 01/03/2016 [facility] BLOOD BANK RESULTS Antibody Scrn Negative (01/03/16 9:25 AM) 01/03/2016 [facility] CHEM PANEL A/G Ratio 0.7 0.7 - 1.6 07/02/2014 [facility] CHEM PANEL B/C Ratio 16 6 - 25 07/02/2014 [facility] CHEM PANEL Globulin 3.0 2.0 - 4.0 07/02/2014 [facility] CHEM PANEL AGAP 12.4 10.0 - 20.0 07/02/2014 [facility] CHEM PANEL eGFR 76 07/02/2014 <sup>1</sup>Result Comment: The eGFR is calculated using the CKD-EPI formula. In most young, healthy individuals the eGFR will be >90 mL/min/1.73m2. The eGFR declines with age. An eGFR of 60-89 may be normal in some populations, particularly the elderly, for whom the CKD-EPI formula has not been extensively validated. Use of the eGFR is not recommended in the following populations:& lt;br/>
Individuals with unstable creatinine concentrations, including patients and those with serious co-morbid conditions.

Patients with extremes in muscle mass or diet.

The data above are obtained from the National Kidney Disease Education Program (NKDEP) which additionally recommends that when the eGFR is used in patients with extremes of body mass index for purposes of drug dosing, the eGFR should be multiplied by the estimated BMI. [facility] CHEM PANEL Chloride Lvl 110 95 - 109 07/02/2014 [facility] CHEM PANEL BUN 16 7 - 22 07/02/2014 [facility] CHEM PANEL Sodium Lvl 140 135 - 145 07/02/2014 [facility] CHEM PANEL Potassium Lvl 3.4 3.5 - 5.1 07/02/2014 [facility] CHEM PANEL Creatinine Lvl 1.0 0.5 - 1.4 07/02/2014 [facility] CHEM PANEL Glucose Lvl 128 70 - 99 07/02/2014 <sup>5</sup>Interpretive Data: Adult reference range values reflect the clinical guidelines
of the [place] [employer]. [facility] CHEM PANEL ALT 19 0 - 65 07/02/2014 [facility] CHEM PANEL Bili Total 0.3 0.2 - 1.3 07/02/2014 [facility] CHEM PANEL AST 20 0 - 37 07/02/2014 [facility] CHEM PANEL Alk Phos 73 39 - 136 07/02/2014 [facility] CHEM PANEL Total Protein 5.0 6.4 - 8.4 07/02/2014 [facility] CHEM PANEL Albumin Lvl 2.0 3.5 - 5.0 07/02/2014 [facility] CHEM PANEL CO2 21 24 - 32 07/02/2014 [facility] CHEM PANEL Calcium Lvl 7.5 8.5 - 10.5 07/02/2014 [facility] HEMATOLOGY Eosinophils 0.5 0.0 - 4.0 07/02/2014 [facility] HEMATOLOGY Monocytes 6.4 2.0 - 12.0 07/02/2014 [facility] HEMATOLOGY Lymphocytes 7.6 20.0 - 40.0 07/02/2014 [facility] HEMATOLOGY Segs 85.3 45.0 - 75.0 07/02/2014 [facility] HEMATOLOGY Eosinophils # 0.1 0.0 - 0.5 07/02/2014 [facility] HEMATOLOGY Monocytes # 0.7 0.0 - 0.8 07/02/2014 [facility] HEMATOLOGY Lymphocytes # 0.9 1.0 - 5.5 07/02/2014 [facility] Segs-Bands # 9.5 1.5 - 8.1 07/02/2014 [facility] Basophils 0.2 0.0 - 1.0 07/02/2014 [facility] RBC 3.58 4.70 - 6.10 07/02/2014 [facility] WBC 11.2 3.7 - 10.4 07/02/2014 [facility] Hct 32.1 42.0 - 54.0 07/02/2014 [facility] Hgb 11.3 14.0 - 18.0 07/02/2014 [facility] MCV 89.6 80.0 - 94.0 07/02/2014 [facility] MCH 31.5 27.0 - 31.0 07/02/2014 [facility] RDW 13.7 11.5 - 14.5 07/02/2014 [facility] MCHC 35.1 32.0 - 36.0 07/02/2014 [facility] MPV 7.3 7.4 - 10.4 07/02/2014 [facility] Platelet 173 133 - 450 07/02/2014 [facility] CARDIAC ENZYMES CK MB Index 3.1 0.0 - 2.5 06/30/2014 [facility] CARDIAC ENZYMES CK MB 4.0 0.5 - 3.6 06/30/2014 [facility] CARDIAC ENZYMES Total CK 129 12 - 191 06/30/2014 [facility] CARDIAC ENZYMES Troponin-I 0.46 0.00 - 0.40 06/30/2014 [facility] CHEM PANEL eGFR 68 06/30/2014 <sup>2</sup>Result Comment: The eGFR is calculated using the CKD-EPI formula. In most young, healthy individuals the eGFR will be >90 mL/min/1.73m2. The eGFR declines with age. An eGFR of 60-89 may be normal in some populations, particularly the elderly, for whom the CKD-EPI formula has not been extensively validated. Use of the eGFR is not recommended in the following populations:& lt;br/>
Individuals with unstable creatinine concentrations, including patients and those with serious co-morbid conditions.

Patients with extremes in muscle mass or diet.

The data above are obtained from the National Kidney Disease Education Program (NKDEP) which additionally recommends that when the eGFR is used in patients with extremes of body mass index for purposes of drug dosing, the eGFR should be multiplied by the estimated BMI. [facility] CHEM PANEL CO2 20 24 - 32 06/30/2014 [facility] CHEM PANEL AGAP 11.0 10.0 - 20.0 06/30/2014 [facility] CHEM PANEL Calcium Lvl 7.2 8.5 - 10.5 06/30/2014 [facility] CHEM PANEL Glucose Lvl 140 70 - 99 06/30/2014 <sup>6</sup>Interpretive Data: Adult reference range values reflect the clinical guidelines
of the [place] [employer]. [facility] CHEM PANEL BUN 28 7 - 22 06/30/2014 [facility] CHEM PANEL Sodium Lvl 137 135 - 145 06/30/2014 [facility] CHEM PANEL Creatinine Lvl 1.1 0.5 - 1.4 06/30/2014 [facility] CHEM PANEL Potassium Lvl 5.0 3.5 - 5.1 06/30/2014 [facility] CHEM PANEL Chloride Lvl 111 95 - 109 06/30/2014 [facility] HEMATOLOGY Segs-Bands # 14.7 1.5 - 8.1 06/30/2014 [facility] HEMATOLOGY Monocytes # 1.9 0.0 - 0.8 06/30/2014 [facility] HEMATOLOGY Lymphocytes # 0.8 1.0 - 5.5 06/30/2014 [facility] HEMATOLOGY Plt Morph Normal (06/30/14 6:05 AM) 06/30/2014 [facility] HEMATOLOGY Monocytes 10.7 2.0 - 12.0 06/30/2014 [facility] HEMATOLOGY Lymphocytes 4.8 20.0 - 40.0 06/30/2014 [facility] HEMATOLOGY Segs 84.4 45.0 - 75.0 06/30/2014 [facility] HEMATOLOGY Basophils 0.1 0.0 - 1.0 06/30/2014 [facility] HEMATOLOGY RBC Morph Normal (06/30/14 6:05 AM) 06/30/2014 [facility] HEMATOLOGY Platelet 123 133 - 450 06/30/2014 [facility] HEMATOLOGY MPV 8.4 7.4 - 10.4 06/30/2014 [facility] HEMATOLOGY RDW 14.7 11.5 - 14.5 06/30/2014 [facility] HEMATOLOGY MCHC 32.1 32.0 - 36.0 06/30/2014 [facility] MCH 30.0 27.0 - 31.0 06/30/2014 [facility] HEMATOLOGY MCV 93.6 80.0 - 94.0 06/30/2014 [facility] HEMATOLOGY Hct 46.3 42.0 - 54.0 06/30/2014 [facility] HEMATOLOGY Hgb 14.8 14.0 - 18.0 06/30/2014 [facility] HEMATOLOGY RBC 4.94 4.70 - 6.10 06/30/2014 [facility] WBC 17.4 3.7 - 10.4 06/30/2014 [facility] CARDIAC ENZYMES Total CK 130 12 - 191 06/29/2014 [facility] CARDIAC ENZYMES Troponin-I 1.33 0.00 - 0.40 06/29/2014 <sup>12</sup>Result Comment: Critical Result(s) called to Bradly Ayala at 06/29/2014 16:54 by MARTÍNEZ. Read back OK. [facility] CARDIAC ENZYMES CK MB 8.0 0.5 - 3.6 06/29/2014 [facility] CARDIAC ENZYMES CK MB Index 6.2 0.0 - 2.5 06/29/2014 [facility] URINE AND STOOL UA Ketones Negative mg/dL Negative mg/dL 06/29/2014 [facility] URINE AND STOOL UA Glucose Negative mg/dL Negative mg/dL 06/29/2014 [facility] URINE AND STOOL UA Urobilinogen 2.0 0.1 - 1.0 06/29/2014 [facility] URINE AND STOOL UA Blood Negative (06/29/14 3:30 PM) Negative 06/29/2014 [facility] URINE AND STOOL UA Bili Negative *NA* (06/29/14 3:30 PM) Negative 06/29/2014 [facility] URINE AND STOOL UA Mucus Few /LPF None Seen /LPF 06/29/2014 [facility] URINE AND STOOL UA RBC 2 0 - 2 06/29/2014 [facility] URINE AND STOOL UA Leuk Est Small *ABN* (06/29/14 3:30 PM) Negative 06/29/2014 [facility] URINE AND STOOL UA Nitrite Negative (06/29/14 3:30 PM) Negative 06/29/2014 [facility] URINE AND STOOL UA Sq Epi Occasional /LPF Few /LPF 06/29/2014 [facility] URINE AND STOOL UA Protein Negative mg/dL Negative mg/dL 06/29/2014 [facility] URINE AND STOOL UA pH 5.0 5.0 - 8.0 06/29/2014 [facility] URINE AND STOOL UA Spec Grav 1.018 <=1.030 06/29/2014 [facility] URINE AND STOOL UA Turbidity Slight *ABN* (06/29/14 3:30 PM) Clear 06/29/2014 [facility] URINE AND STOOL UA Color Yellow *NA* (06/29/14 3:30 PM) Yellow 06/29/2014 [facility] CARDIAC ENZYMES CK MB 8.9 0.5 - 3.6 06/29/2014 [facility] CARDIAC ENZYMES Total CK 124 12 - 191 06/29/2014 [facility] CARDIAC ENZYMES Troponin-I 1.11 0.00 - 0.40 06/29/2014 <sup>13</sup>Result Comment: Critical Result(s) called to nahum ayala at 06/29/2014 10:50 by sb. Read back OK. [facility] CHEM PANEL Calcium Lvl 7.8 8.5 - 10.5 06/29/2014 [facility] CHEM PANEL Phosphorus 3.3 2.5 - 4.5 06/29/2014 [facility] CHEM PANEL Magnesium Lvl 3.9 1.8 - 2.4 06/29/2014 <sup>8</sup>Result Comment: Critical Result(s) called to feli rangel at 06/29/2014 10:47 by sb. Read back OK. [facility] CHEM PANEL Calcium Lvl 7.8 8.5 - 10.5 06/29/2014 [facility] CHEM PANEL BUN 28 7 - 22 06/29/2014 [facility] CHEM PANEL Glucose Lvl 149 70 - 99 06/29/2014 <sup>7</sup>Interpretive Data: Adult reference range values reflect the clinical guidelines
of the [place] [employer]. [facility] CHEM PANEL Sodium Lvl 138 135 - 145 06/29/2014 [facility] CHEM PANEL Creatinine Lvl 1.9 0.5 - 1.4 06/29/2014 [facility] CHEM PANEL eGFR 35 06/29/2014 <sup>3</sup>Result Comment: The eGFR is calculated using the CKD-EPI formula. In most young, healthy individuals the eGFR will be >90 mL/min/1.73m2. The eGFR declines with age. An eGFR of 60-89 may be normal in some populations, particularly the elderly, for whom the CKD-EPI formula has not been extensively validated. Use of the eGFR is not recommended in the following populations:& lt;br/>
Individuals with unstable creatinine concentrations, including patients and those with serious co-morbid conditions.

Patients with extremes in muscle mass or diet.

The data above are obtained from the National Kidney Disease Education Program (NKDEP) which additionally recommends that when the eGFR is used in patients with extremes of body mass index for purposes of drug dosing, the eGFR should be multiplied by the estimated BMI. [facility] CHEM PANEL Chloride Lvl 110 95 - 109 06/29/2014 [facility] CHEM PANEL Potassium Lvl 4.8 3.5 - 5.1 06/29/2014 [facility] CHEM PANEL CO2 20 24 - 32 06/29/2014 [facility] CHEM PANEL AGAP 12.8 10.0 - 20.0 06/29/2014 [facility] CHEM PANEL eGFR 35 06/29/2014 <sup>4</sup>Result Comment: The eGFR is calculated using the CKD-EPI formula. In most young, healthy individuals the eGFR will be >90 mL/min/1.73m2. The eGFR declines with age. An eGFR of 60-89 may be normal in some populations, particularly the elderly, for whom the CKD-EPI formula has not been extensively validated. Use of the eGFR is not recommended in the following populations:& lt;br/>
Individuals with unstable creatinine concentrations, including patients and those with serious co-morbid conditions.

Patients with extremes in muscle mass or diet.

The data above are obtained from the National Kidney Disease Education Program (NKDEP) which additionally recommends that when the eGFR is used in patients with extremes of body mass index for purposes of drug dosing, the eGFR should be multiplied by the estimated BMI. [facility] CHEM PANEL Creatinine Lvl 1.9 0.5 - 1.4 06/29/2014 [facility] HEMATOLOGY Platelet 223 133 - 450 06/29/2014 [facility] HEMATOLOGY PTT 48.1 22.9 - 35.8 06/29/2014 <sup>15</sup>Interpretive Data: Heparin Therapeutic Range: 57 - 92 Seconds [facility] BACTERIAL - SEROLOGY MRSA by PCR Negative 17 (06/29/14 6:55 AM) 06/29/2014 <sup>17</sup>Interpretive Data: Interpretive Data: The [employer] LightCycler MRSA assay is a qualitative test for the direct detection of nasal colonization with methicillin-resistant Staphyloco ccus aureus (MRSA) to aid in the prevention and control of MRSA infections in healthcare settings. A positive result does not indicate an infection or require treatment. A negative result does not exclude colonization or infection.

The polymerase chain reaction (PCR) assay detects a proprietary sequence indicative of the integration of the SCCmec cassette into the Staphylococcus aureus chromosome, indicating the presence of MRSA DNA. The assay utilizes FDA cleared IVD reagents. Performance characteristics have been verified by [facility]. The [facility] is authorized under the Clinical Laboratory Improvement Amendment of 1988 (CLIA-88) to perform high complexity testing. [facility] Lymphocytes # 0.6 1.0 - 5.5 06/29/2014 [facility] Segs 89.1 45.0 - 75.0 06/29/2014 [facility] Lymphocytes 2.3 20.0 - 40.0 06/29/2014 [facility] Monocytes 8.6 2.0 - 12.0 06/29/2014 [facility] Segs-Bands # 21.0 1.5 - 8.1 06/29/2014 [facility] Monocytes # 2.0 0.0 - 0.8 06/29/2014 [facility] RBC 4.66 4.70 - 6.10 06/29/2014 [facility] MCH 30.3 27.0 - 31.0 06/29/2014 [facility] MCV 91.8 80.0 - 94.0 06/29/2014 [facility] Hct 42.8 42.0 - 54.0 06/29/2014 [facility] Hgb 14.1 14.0 - 18.0 06/29/2014 [facility] RDW 14.3 11.5 - 14.5 06/29/2014 [facility] MPV 7.1 7.4 - 10.4 06/29/2014 [facility] HEMATOLOGY MCHC 33.0 32.0 - 36.0 06/29/2014 [facility] HEMATOLOGY WBC 23.6 3.7 - 10.4 06/29/2014 [facility] CHEM PANEL B/C Ratio 10 6 - 25 06/29/2014 [facility] CHEM PANEL Globulin 4.1 2.0 - 4.0 06/29/2014 [facility] CHEM PANEL A/G Ratio 0.9 0.7 - 1.6 06/29/2014 [facility] CHEM PANEL Albumin Lvl 3.5 3.5 - 5.0 06/29/2014 [facility] CHEM PANEL ALT 35 0 - 65 06/29/2014 [facility] CHEM PANEL Total Protein 7.6 6.4 - 8.4 06/29/2014 [facility] CHEM PANEL AST 38 0 - 37 06/29/2014 [facility] CHEM PANEL Alk Phos 151 39 - 136 06/29/2014 [facility] CHEM PANEL Bili Total 0.6 0.2 - 1.3 06/29/2014 [facility] CHEM PANEL Magnesium Lvl 4.7 1.8 - 2.4 06/29/2014 <sup>9</sup>Result Comment: Critical Result(s) called to alyssarn at 06/29/2014 06:48 by/elke. Read back OK. [facility] URINE AND STOOL UA pH 5.0 5.0 - 8.0 06/29/2014 [facility] URINE AND STOOL UA Ketones Negative mg/dL Negative mg/dL 06/29/2014 [facility] URINE AND STOOL UA Glucose Negative mg/dL Negative mg/dL 06/29/2014 [facility] URINE AND STOOL UA Nitrite Negative (06/29/14 5:15 AM) Negative 06/29/2014 [facility] URINE AND STOOL UA Urobilinogen 2.0 0.1 - 1.0 06/29/2014 [facility] URINE AND STOOL UA Blood Negative (06/29/14 5:15 AM) Negative 06/29/2014 [facility] URINE AND STOOL UA Bili Negative *NA* (06/29/14 5:15 AM) Negative 06/29/2014 [facility] URINE AND STOOL UA Mucus Few /LPF None Seen /LPF 06/29/2014 [facility] URINE AND STOOL UA RBC <1 0 - 2 06/29/2014 [facility] URINE AND STOOL UA Leuk Est Negative (9/5/14 5:15 AM) Negative 06/29/2014 [facility] URINE AND STOOL UA WBC 1 0 - 5 06/29/2014 [facility] URINE AND STOOL UA Sq Epi Occasional /LPF Few /LPF 06/29/2014 [facility] URINE AND STOOL UA Protein Negative mg/dL Negative mg/dL 06/29/2014 [facility] URINE AND STOOL UA Color Yellow *NA* (06/29/14 5:15 AM) Yellow 06/29/2014 [facility] URINE AND STOOL UA Turbidity Clear (06/29/14 5:15 AM) Clear 06/29/2014 [facility] URINE AND STOOL UA Spec Grav 1.032 <=1.030 06/29/2014 [facility] CHEM PANEL Lactic Acid Lvl 5.9 0.5 - 2.2 06/29/2014 <sup>11</sup>Result Comment: Critical Result(s) called to alyssarn at 06/29/2014 06:48 by/elke. Read back OK. [facility] CARDIAC ENZYMES CK MB Index 1.3 0.0 - 2.5 06/29/2014 [facility] CHEM PANEL Phosphorus 5.0 2.5 - 4.5 06/29/2014 [facility] CHEM PANEL Magnesium Lvl 4.6 1.8 - 2.4 06/29/2014 <sup>10</sup>Result Comment: Critical Result(s) called to ed hair at 06/29/2014 02:20 by/elke. Read back OK. [facility] CHEM PANEL Lipase Lvl 254 73 - 393 06/29/2014 [facility] CHEM PANEL Amylase Lvl 79 25 - 115 06/29/2014 [facility] CHEM PANEL A/G Ratio 0.8 0.7 - 1.6 06/29/2014 [facility] CHEM PANEL Globulin 4.2 2.0 - 4.0 06/29/2014 [facility] CHEM PANEL B/C Ratio 10 6 - 25 06/29/2014 [facility] CHEM PANEL AST 39 0 - 37 06/29/2014 [facility] CHEM PANEL ALT 34 0 - 65 06/29/2014 [facility] CHEM PANEL Total Protein 7.6 6.4 - 8.4 06/29/2014 [facility] CHEM PANEL Albumin Lvl 3.4 3.5 - 5.0 06/29/2014 [facility] CHEM PANEL Bili Total 0.6 0.2 - 1.3 06/29/2014 [facility] CHEM PANEL Alk Phos 151 39 - 136 06/29/2014 [facility] HEMATOLOGY Basophils # 0.1 0.0 - 0.2 06/29/2014 [facility] HEMATOLOGY Basophils 0.2 0.0 - 1.0 06/29/2014 [facility] HEMATOLOGY PT 15.7 12.0 - 14.7 06/29/2014 [facility] HEMATOLOGY INR 1.24 0.85 - 1.17 06/29/2014 <sup>14</sup>Interpretive Data: RECOMMENDED RANGES FOR PROTIME INR:
2.0-3.0 for most medical and surgical thromboembolic states.
2.5-3.5 for artificial heart valves and recurrent embolism.

INR SHOULD BE USED ONLY FOR PATIENTS ON STABLE ANTICOAGULANT THERAPY. [facility] PTT 53.1 22.9 - 35.8 06/29/2014 <sup>16</sup>Interpretive Data: Heparin Therapeutic Range: 57 - 92 Seconds [facility] Pathology Reports No Data Provided for This Section Diagnostic Reports Report Value Date Source Abscess localization scan NM EXAM: Nuclear medicine abscess localization scan HISTORY: Osteoarthritis right knee COMPARISON: Nuclear medicine scan 08/12/2017 TECHNIQUE: 15.6 mCi technetium 99m Ceretec given IV right antecubital region. FINDINGS: No abnormal tracer localization is seen in the right knee to suggest infection. Physiological tracer activity in the liver, spleen, bladder and bone marrow. IMPRESSION: No evidence of infection in the right knee. JOSUÉ Kaur 07/05/2019 [facility] Abscess localization scan NM Clinical Indication: - degenerative joint disease of knee, right. Comparison: None TECHNIQUE: A nuclear medicine white blood cell scan was performed using 19.54 mCi of Tc 99m Ceretec labeled white blood cells, which was administered intravenously. IV Site: Right Antecubital Whole body static imaging was performed. Imaging was performed in the frontal planes 2 hours after radiotracer administration. FINDINGS: Normal with distribution of the radiotracer to the spleen, liver and some segments of bone marrow. No abnormal foci of radiotracer uptake to suggest abscess or infection. There is no abnormal radiotracer activity seen in the right knee region. IMPRESSION: 1. Unremarkable Ceretec labeled white blood cell scan. No evidence of abscess or infection. SL: [id number] 08/12/2017 [facility] Knee 4+ views unilateral DX EXAM: RIGHT KNEE 4 VIEWS DATE: 08/05/2017 12:57 PM CDT INDICATION: - M79.609 Pain in unspecified limb COMPARISON: Bilateral knee series 10/28/2012 TECHNIQUE: AP weightbearing view both knees with PA weightbearing, lateral, and sunrise views of the right knee. FINDINGS: Right ACL reconstruction is noted without hardware complication. No acute bone abnormality. Severe right lateral compartment narrowing and moderate left medial compartment narrowing. Bilateral moderate tricompartmental osteophytes. No right knee joint effusion. Moderate vascular calcification. IMPRESSION: 1. Severe right knee osteoarthrosis, greatest in the lateral compartment. 2. Right knee ACL reconstruction without hardware complication identified. 08/05/2017 [facility] Abdomen 2 views Abdomen 2 views: There is mild colon distention with small amount of fluid, unchanged in appearance from 07/01/2014. There is no significant small bowel distention, with a small amount of fluid noted in the distal small bowel. There is no evidence of pneumoperitoneum. There is no other significant change. SL:13 07/02/2014 [facility] Abdomen 2 views ABDOMINAL RADIOGRAPH 2 VIEWS INDICATION: Abdominal distention COMPARISON: None IMPRESSION: 1. There is no bowel dilatation or evidence of pneumoperitoneum. 2. Cholecystectomy clips are in place. No potential urolithiasis is seen. SL: 16 07/01/2014 [facility] Chest 1view PORTABLE CHEST 06/29/2014 AT 0233 HOURS. INDICATION: Chest pain COMPARISON: Chest 04/24/[address] chest this date. The cardiac silhouette is enlarged, post sternotomy. Intracardiac devices terminate within the right heart. The lungs are incompletely inflated. No infiltrate, vascular congestion or significant pleural effusion is seen. Interstitial scarring is noted at the bases, more prominent on the left. SL: 12 06/29/2014 [facility] Chest/Abdomen/Pelvis w IV contrast CT CT CHEST, ABDOMEN AND PELVIS WITH CONTRAST. INDICATION: Hypotension, nausea and vomiting. Axial images with sagittal and coronal reconstructions were obtained following nonionic intravenous contrast, Visipaque [address] CHEST: Streak artifacts are produced by intracardiac devices and pacing generator. The lungs demonstrate interstitial scarring which is most prominent at the bases. No airspace consolidation is evident. The heart is enlarged, post sternotomy and coronary artery calcifications are noted. There is abundant amount of mediastinal and epicardial fat. No pleural or pericardial effusion is seen. IMPRESSION: 1. No acute abnormality. 2. Interstitial scarring. 3. Cardiomegaly post sternotomy with coronary artery calcifications. CT ABDOMEN AND PELVIS: There is fatty infiltration of the liver. Cholecystectomy has been performed. The spleen is not remarkable. The kidneys, adrenals and pancreas are not remarkable. There is a large amount of fecal material within the colon. No intestinal lesion or mesenteric inflammatory change is noted. Minor atherosclerotic vascular calcifications are evident. The bladder is virtually. The prostate is not remarkable. A small fat-containing umbilical hernia is noted. No pneumoperitoneum or intraperitoneal fluid is seen. Postoperative changes involve the lumbar spine with extensive spondylosis. IMPRESSION: 1. No acute abnormality. 2. Fatty liver and cholecystectomy. 3. Constipation. SL: 12 06/29/2014 [facility] Consultation Notes No Data Provided for This Section Discharge Summaries No Data Provided for This Section History and Physicals No Data Provided for This Section Vital Signs Vital Sign Value Date Comments Source Systolic (mm Hg) 159 01/04/2016 [facility] Diastolic (mm Hg) 74 01/04/2016 [facility] Systolic (mm Hg) 159 01/04/2016 [facility] Diastolic (mm Hg) 74 01/04/2016 [facility] Systolic (mm Hg) 159 01/04/2016 [facility] Diastolic (mm Hg) 74 01/04/2016 [facility] BMI Calculated 29.04 01/03/2016 [facility] Weight 91.818 01/03/2016 [facility] Height 177.8 cm 01/03/2016 [facility] Diastolic (mm Hg) 75 07/02/2014 [facility] Systolic (mm Hg) 149 07/02/2014 [facility] Temperature Oral (F) 98.6 F 07/02/2014 [facility] Heart Rate 76 07/02/2014 [facility] Respitory Rate 19 07/02/2014 [facility] Systolic (mm Hg) 145 07/02/2014 [facility] Diastolic (mm Hg) 73 07/02/2014 [facility] Temperature Oral (F) 98.1 F 07/02/2014 [facility] Respitory Rate 18 07/02/2014 [facility] Heart Rate 75 07/02/2014 [facility] Diastolic (mm Hg) 55 07/02/2014 [facility] Systolic (mm Hg) 121 07/02/2014 [facility] Temperature Oral (F) 98.6 F 07/02/2014 [facility] Heart Rate 79 07/02/2014 [facility] Respitory Rate 20 07/02/2014 [facility] Height 175.26 cm 06/30/2014 [facility] BMI Calculated 31.08 06/30/2014 [facility] Weight 95.455 06/30/2014 [facility] BMI Calculated 31.63 06/29/2014 [facility] Height 177.8 cm 06/29/2014 [facility] Weight 100 06/29/2014 [facility] Encounters Location Location Details Encounter Type Encounter Number Reason For Visit Attending Provider ADM Date DC Date Status Source [facility] Emergency [id number] SOB DANIELA HULL 04/23/2012 Active [facility] Inpatient [id number] Deric Teqwimuah 06/29/2014 07/02/2014 [facility] Bed[facility] Outpatient [id number] Otilialashaunzuri Hematpour 01/03/2016 01/04/2016 [facility] [place] [facility] Di[facility] Services [id number] Buddy Plummer 08/05/2017 08/06/2017 [facility] Outpatient [id number] Buddy Plummer 08/12/2017 08/13/2017 [facility] Outpatient [id number] Daniela Roberson 07/05/2019 07/06/2019 [facility] Procedures Procedure Code Date Perfomer Comments Source Coronary artery bypass grafts x [id number] [facility] OPID [place] Fusion [id number] [facility] [place] Incision and drainage of wound [id number] [facility] [place] Knee joint operation [id number] [facility] [place] Laminectomy [id number] [facility] [place] Shoulder joint operations [id number] [facility] [place] Assessment and Plan Assessment and Plan Date Source Extracted from:Title: Clinical Document Author: Maryuri Anderson MD Date: 07/01/14 [facility] SUBJECTIVE Patient Examed, Chart Reviewed, events noted. OBJECTIVE Vitals and Temp: Vitals Tmp(F) Pulse BP RR SpO2 FIO2 07/01 13:00 ---- 65 144/64 17 98 --- 07/01 12:00 98.1 72 123/61 14 99 --- 07/01 11:00 ---- 74 79/49 24 99 --- 07/01 10:00 ---- 72 148/129 17 97 --- 07/01 09:00 ---- 69 150/61 17 98 --- 24 Hr Tmax: 98.5F (36.94c) at 07/01 05:00 Vital Signs are the last 5 in the past 48 hours. Input/Output Record In Out Bal 07/01 24hr Tot [id number] 06/30 24hr Tot [id number] Labs (Last four charted values) WBC H 17.4 (JUN 30) H 23.6 (JUN 29) H 28.0 (JUN 29) Hgb 14.8 (JUN 30) 14.1 (JUN 29) 15.6 (JUN 29) Hct 46.3 (JUN 30) 42.8 (JUN 29) 48.4 (JUN 29) Plt L 123 (JUN 30) 223 (JUN 29) 231 (JUN 29) 290 (JUN 29) Na 137 (JUN 30) 138 (JUN 29) 138 (JUN 29) 137 (JUN 29) K 5.0 (JUN 30) 4.8 (JUN 29) L 3.3 (JUN 29) L 3.4 (JUN 29) CO2 L 20 (JUN 30) L 20 (JUN 29) L 19 (JUN 29) L 20 (JUN 29) Cl H 111 (JUN 30) H 110 (JUN 29) 102 (JUN 29) 100 (JUN 29) Cr 1.1 (JUN 30) H 1.9 (JUN 29) H 1.9 (JUN 29) H 2.6 (JUN 29) BUN H 28 (JUN 30) H 28 (JUN 29) H 25 (JUN 29) H 25 (JUN 29) Glucose Random H 140 (JUN 30) H 149 (JUN 29) H 179 (JUN 29) H 174 (JUN 29) Mg C 3.9 (JUN 29) C 4.7 (JUN 29) C 4.6 (JUN 29) Phos 3.3 (JUN 29) H 5.0 (JUN 29) Ca L 7.2 (JUN 30) L 7.8 (JUN 29) L 7.8 (JUN 29) 9.1 (JUN 29) PT H 15.7 (JUN 29) INR H 1.24 (JUN 29) PTT H 48.1 (JUN 29) H 53.1 (JUN 29) Troponin H 0.46 (JUN 30) C 1.33 (JUN 29) C 1.11 (JUN 29) <0.02 (JUN 29) CK MB H 4.0 (JUN 06) H 8.0 (JUN 05) H 8.9 (JUN 05) 0.9 (JUN 05) Total CK 129 (JUN 30) 130 (JUN 29) 124 (JUN 29) 68 (JUN 29) ASSESSMENT and EXAM GENERAL APPEARANCE: The patient is alert [...] No cyanosis, clubbing, no edema noted. DIAGNOSES and PROBLEMS 1. Elevated cardiac enzymes- improving probably related to demand ischemia 2.Normal LV function on echo 3- severe costipation PLAN and TREATMENT PT HAD GOOD BM, DOING WELL, [...] Infusions (1):Sodium Chloride 0.9% IV 1,000 mL 07/02/2014 [facility] Plan of Care No Data Provided for This Section Social History Social History Date Source Social History TypeResponse Smoking Status Smoker, current status unknown; Type: Cigarettes; Exposure to Tobacco Smoke None; Cigarette Smoking Last 365 Days No; Reg Smoking Cessation Counseling No 01/04/2016 [facility] Social History TypeResponse Smoking Status Smoker, current status unknown; Type: Cigarettes; Exposure to Tobacco Smoke None; Cigarette Smoking Last 365 Days No; Reg Smoking Cessation Counseling No entered on: 01/03/16 01/04/2016 [facility] Social History TypeResponse Smoking Status Smoker, current status unknown; Type: Cigarettes; Exposure to Tobacco Smoke None; Cigarette Smoking Last 365 Days No; Reg Smoking Cessation Counseling No 01/04/2016 [facility] Family History No Data Provided for This Section Advance Directives No Data Provided for This Section Functional Status No Data Provided for This Section
--- OUTSIDE RECORDS SUMMARY | 2019-07-17 16:52 | XMS REPORT ---
Author Author Gilda Gibbons Organization [employer]Clinical[employer] Address Unknown Phone Unavailable Care Team Providers Care Solder Technician Name Role Phone Gilda Gibbons CP Unavailable [...] Instructions Start Date End Date Status Dosage Metoprolol Tartrate [facility] [id number] 50 mg Orally Twice a day Active 1 tablet Results No Known Results Summary Purpose eClinicalWorks Submission
--- OUTSIDE RECORDS SUMMARY | 2019-07-17 16:53 | XMS REPORT ---
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 Problem Hypercholesteremia E78.00 Active Problem DJD (degenerative joint disease) of knee M17.9 Active Problem PVCs (premature ventricular contractions) I49.3 Active Problem Abnormal EKG R94.31 Active Problem Stented coronary artery Z95.5 Active Problem Patient unable to exercise Z72.89 Active Problem Essential (primary) hypertension I10 Active Problem 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
--- OUTSIDE RECORDS SUMMARY | 2019-07-17 16:53 | XMS REPORT ---
Author Author [facility] Address Unknown Phone Unavailable Care Team Providers Care Almond Pan Finisher Name Role Phone Javad MCKINNEY Unavailable Unavailable Payers Payer Name Policy Type Policy Number Effective Date Expiration Date Problems This patient has no known problems. Allergies, Adverse Reactions, Alerts Allergy Name Allergy Type Status Severity Reaction(s) Onset Date Inactive Date Treating Clinician Comments No Known Allergies DA Active U 2018-04-01 00:00:00 Medications This patient has no known medications. Encounters Start Date/Time End Date/Time Encounter Type Admission Type Attending [facility] Facility Care Department Encounter ID 2019-07-05 06:27:00 2019-07-05 06:27:00 Outpatient [id number] Results Test Description Test Time Test Comments Text Results Atomic Results Result Comments COMPREHENSIVE METABOLIC PANEL 2019-05-16 11:26:00 SODIUM (test code=NA) 137 mmol/L 136-145 POTASSIUM (test code=K) 4.7 mmol/L 3.5-5.1 CHLORIDE (test code=CL) 107.0 mmol/L 98-107 CARBON DIOXIDE (test code=CO2) 25.0 mmol/L 21-32 ANION GAP (test code=GAP) 9.7 10-20 GLUCOSE (test code=GLU) 127 mg/dL 74-106 BLOOD UREA NITROGEN (test code=BUN) 26 mg/dL 7-18 GLOMERULAR FILTRATION RATE (test code=GFR) 50 mL/min >=60 Estimated GFR by using Modified MDRD formula.Chronic kidney disease is defined as either kidney damageor GFR <60 mL/min/1.73 m2 for >3 months. CREATININE (test code=CREAT) 1.40 mg/dL 0.7-1.3 BUN/CREATININE RATIO (test code=BUN/CREA) 18.2 10-20 TOTAL PROTEIN (test code=PROT) 7.4 gram/dL 6.4-8.2 ALBUMIN (test code=ALB) 3.4 g/dL 3.4-5.0 GLOBULIN (test code=GLOB) 4.0 gram/dL 2.7-4.2 ALBUMIN/GLOBULIN RATIO (test code=A/G) 0.8 0.75-1.50 CALCIUM (test code=CA) 9.2 mg/dL 8.5-10.1 BILIRUBIN TOTAL (test code=BILT) 0.30 mg/dL 0.0-1.0 SGOT/AST (test code=AST) 13 IUnit/L 15-37 SGPT/ALT (test code=ALT) 17 IUnit/L 12-78 ALKALINE PHOSPHATASE TOTAL (test code=ALKP) 129 IUnit/L 45-117 Note change in reference range due to change in reagent. LIPID PROFILE (CORONARY RISK)2019-05-16 11:26:00* Test Item Value Reference Range Comments TRIGLYCERIDES (test code=TRIG) 104 mg/dL 20-150 CHOLESTEROL (test code=CHOL) 141 mg/dL 0-200 CHOLESTEROL/HDL RATIO (test code=CHOLHDL) 3.0 RATIO 0-4.9 RISK ASSOCIATED WITH CHOL/HDL RATIOS: Risk Male Female1/2 AVERAGE 3.43 3.27AVERAGE 4.97 4.442X AVERAGE 9.55 7.053X AVERAGE 23.39 11.04 REFERENCE VALUE IS RELATED TO RISK LEVELS ASRECOMMENDED BY THE JEN. HEART, LUNG, AND BLOOD INST. HDL CHOLESTEROL (test code=HDL) 43 mg/dL 40-60 LIPOPROTEIN LDL (test code=LDL) 88 mg/dL 100-129 Reference Interval: mg/dL mmol/L Optimal <100 <2.6Near/above optimal 100-129 2.6- 3.3Borderline High 130-159 3.4-4.1High 160-189 4.1-4.9Very High >=190 >=4.9=========This LDL result is a direct measurement.========= THYROID STIMULATING [id number] 11:26:00* Test Item Value Reference Range Comments THYROID STIMULATING HORMONE (test code=TSH) 2.410 uIU/mL 0.36-3.74 TSH REFERENCE RANGES: EUTHYROID: 0.35 - 4.3 mIU/mL HYPO : > 5.5 mIU/mL HYPER : < 0.35 mIU/mL COMPREHENSIVE METABOLIC [id number] 11:07:00* Test Item Value Reference Range Comments SODIUM (test code=NA) 137 mmol/L 136-145 POTASSIUM (test code=K) 4.7 mmol/L 3.5-5.1 CHLORIDE (test code=CL) 107.0 mmol/L 98-107 CARBON DIOXIDE (test code=CO2) mmol/L 21-32 ANION GAP (test code=GAP) 10-20 GLUCOSE (test code=GLU) mg/dL 74-106 BLOOD UREA NITROGEN (test code=BUN) mg/dL 7-18 GLOMERULAR FILTRATION RATE (test code=GFR) mL/min >=60 CREATININE (test code=CREAT) mg/dL 0.7-1.3 BUN/CREATININE RATIO (test code=BUN/CREA) 10-20 TOTAL PROTEIN (test code=PROT) gram/dL 6.4-8.2 ALBUMIN (test code=ALB) g/dL 3.4-5.0 GLOBULIN (test code=GLOB) gram/dL 2.7-4.2 ALBUMIN/GLOBULIN RATIO (test code=A/G) 0.75-1.50 CALCIUM (test code=CA) mg/dL 8.5-10.1 BILIRUBIN TOTAL (test code=BILT) mg/dL 0.0-1.0 SGOT/AST (test code=AST) IUnit/L 15-37 SGPT/ALT (test code=ALT) IUnit/L 12-78 ALKALINE PHOSPHATASE TOTAL (test code=ALKP) IUnit/L 45-117 LIPID PROFILE (CORONARY RISK)2019-05-16 11:07:00* Test Item Value Reference Range Comments TRIGLYCERIDES (test code=TRIG) mg/dL 20-150 CHOLESTEROL (test code=CHOL) mg/dL 0-200 CHOLESTEROL/HDL RATIO (test code=CHOLHDL) RATIO 0-4.9 HDL CHOLESTEROL (test code=HDL) mg/dL 40-60 LIPOPROTEIN LDL (test code=LDL) mg/dL 100-129 THYROID STIMULATING [id number] 11:07:00* Test Item Value Reference Range Comments THYROID STIMULATING HORMONE (test code=TSH) uIU/mL 0.36-3.74 CBC W/AUTO [id number] 10:35:00* Test Item Value Reference Range Comments WHITE BLOOD CELL (test code=WBC) K/mm3 4.5-12.5 RED BLOOD CELL (test code=RBC) mill/mm3 4.0-5.8 HEMOGLOBIN (test code=HGB) 13.5 gram/dL 13.0-17.5 HEMATOCRIT (test code=HCT) % 42.0-52.0 MEAN CELL VOLUME (test code=MCV) fL 80-98 MEAN CELL HGB (test code=MCH) picogram 27.0-33.0 MEAN CELL HGB CONCETRATION (test code=MCHC) gram/dL 33.0-36.0 RED CELL DISTRIBUTION WIDTH (test code=RDW) % 11.6-16.2 RED CELL DISTRIBUTION WIDTH SD (test code=RDW-SD) fL 37.0-51.0 PLATELET COUNT (test code=PLT) K/mm3 150-450 MEAN PLATELET VOLUME (test code=MPV) fL 6.7-11.0 NEUTROPHIL % (test code=NT%) % 39.0-69.0 IMMATURE GRANULOCYTE % (test code=IG%) % 0.0-5.0 LYMPHOCYTE % (test code=LY%) % 25.0-55.0 MONOCYTE % (test code=MO%) % 0.0-10.0 EOSINOPHIL % (test code=EO%) % 0.0-5.0 BASOPHIL % (test code=BA%) % 0.0-1.0 NEUTROPHIL # (test code=NT#) K/mm3 1.8-7.7 LYMPHOCYTE # (test code=LY#) K/mm3 1.0-5.0 MONOCYTE # (test code=MO#) K/mm3 0-0.8 EOSINOPHIL # (test code=EO#) K/mm3 0.0-0.5 BASOPHIL # (test code=BA#) K/mm3 0.0-0.2 CBC W/AUTO [id number] 10:35:00* Test Item Value Reference Range Comments WHITE BLOOD CELL (test code=WBC) 9.0 K/mm3 4.5-12.5 RED BLOOD CELL (test code=RBC) 4.70 mill/mm3 4.0-5.8 HEMOGLOBIN (test code=HGB) 13.5 gram/dL 13.0-17.5 HEMATOCRIT (test code=HCT) 41.9 % 42.0-52.0 MEAN CELL VOLUME (test code=MCV) 89.1 fL 80-98 MEAN CELL HGB (test code=MCH) 28.7 picogram 27.0-33.0 MEAN CELL HGB CONCETRATION (test code=MCHC) 32.2 gram/dL 33.0-36.0 RED CELL DISTRIBUTION WIDTH (test code=RDW) 13.4 % 11.6-16.2 RED CELL DISTRIBUTION WIDTH SD (test code=RDW-SD) 43.8 fL 37.0-51.0 PLATELET COUNT (test code=PLT) 182 K/mm3 150-450 MEAN PLATELET VOLUME (test code=MPV) 9.9 fL 6.7-11.0 NEUTROPHIL % (test code=NT%) 67.6 % 39.0-69.0 IMMATURE GRANULOCYTE % (test code=IG%) 0.7 % 0.0-5.0 LYMPHOCYTE % (test code=LY%) 18.1 % 25.0-55.0 MONOCYTE % (test code=MO%) 11.3 % 0.0-10.0 EOSINOPHIL % (test code=EO%) 2.0 % 0.0-5.0 BASOPHIL % (test code=BA%) 0.3 % 0.0-1.0 NUCLEATED RBC % (test code=NRBC%) 0.0 % 0-0 NEUTROPHIL # (test code=NT#) 6.09 K/mm3 1.8-7.7 IMMATURE GRANULOCYTE # (test code=IG#) 0.06 x10 3/uL 0-0.03 LYMPHOCYTE # (test code=LY#) 1.63 K/mm3 1.0-5.0 MONOCYTE # (test code=MO#) 1.02 K/mm3 0-0.8 EOSINOPHIL # (test code=EO#) 0.18 K/mm3 0.0-0.5 BASOPHIL # (test code=BA#) 0.03 K/mm3 0.0-0.2 NUCLEATED RBC # (test code=NRBC#) 0.00 K/mm3 0.0-0.1 MANUAL DIFF REQUIRED (test code=MDIFF) NO - XR CHEST 2 [id number] 10:21:00 FAX: Gilda Conner [phone] [place]: St: PRE FAX: Carlos Marcial MD [phone] Name: RAMOS SANCHEZ [facility] : 1945 Age/S: 74/M [address] [facility] Unit #: [id number] Loc: [place] [address] Phys: Gilda Gibbons MD Acct: [id number] Dis Date: Status: PRE [facility] PHONE #: [phone] Exam Date: 05/16/2019 1003 FAX #: [phone] Reason: PRE OP EXAMS: CPT CODE: [id number] XR CHEST 2 V 01638 HISTORY: Preop. COMPARISON: April 01, 2018. AP and lateral view of the chest: No acute infiltrates, effusion or congestion. Suboptimal inspiration. Dependent changes. Cardiomegaly. DJD of the dorsal spine with mild anterior wedging of the upper lumbar vertebral body. IMPRESSION: No acute infiltrates, effusion or congestion. at 1021 Reported and signed by: Marvin Amaral M.D. CC: Gilda Gibbons MD; Carlos Mckinney Technologist: Ngoc Quesada RT(R) Trnscrd Date/Time/By: 05/16/2019 (1021) : By: [email or web address] Orig Print D/T: S: 05/16/2019 (2128) [address] LUMBAR SPINE [id number] 17:25:00 [place] [address] Patient Name: RAMOS SANCHEZ MR #: [id number] : 1945 Age/Sex: 73/M Req #: [id number] Adm Physician: Ordered by: CARLOS MCKINNEY MD Report #: [id number] Location: CT Room/Bed: Procedure: [id number] CT/C T LUMBAR SPINE WO Exam Date: 01/06/19 Exam Time: 145 2 REPORT STATUS: Signed CT LUMBA R SPINE WO HISTORY: Low back pain COMPARISON: Report from lumbar CT da bell dated 07/27/2016 (images not available at time of dictation) TECH NIQUE: Axial CT images of the lumbar spine were obtained without contrast. C oronal and sagittal reconstructions obtained from the axial data. One or more of the following dose reduction techniques were used: Automated exposure cont rol, adjustment of the mA and/or kV according to patient size, and/or utilizat ion of iterative reconstruction technique. DISCUSSION: Postsurgical shanta nges related to posterior fusion at L3-L4 with laminectomies from L2 to L4 are noted. Associated hardware streak artifacts obscure some details. There is no evidence for hardware failure or loosening. Mild bone demineralization also l imits evaluation. There are 5 nonrib-bearing lumbar vertebral bodies. Lum bar lordosis is preserved. There is no significant scoliosis. No definite ac kalispel fracture or compression deformity is seen. Chronic, segmented right L1 tra nsverse process may be from remote trauma. Chronic, osseous defects in the clarisse ateral medial iliac bones are likely from remote surgery. No gross spinal ca nal mass is seen. Posterior incision changes are present. There is paraspina l muscle atrophy at the lumbosacral junction. The paravertebral and paraspinal soft tissues are otherwise unremarkable. Mild to moderate multilevel spond ylotic changes are present. Mild bilateral sacroiliac degenerative changes are present as well. L1-L2: There is mild retrolisthesis of L1 on L2. No gross canal or foraminal stenosis. L2-L3: There is mild retrolisthesis of L2 on L3. Mild to moderate right and moderate left foraminal stenoses due to disc bulge and facet arthrosis. No gross canal stenosis. L3-L4: Fusion level w ithout gross foraminal stenosis. The spinal canal is poorly visualized due to streak artifact. L4-L5: The L4 and L5 vertebral bodies are partially fused. No gross canal or foraminal stenosis. L5-S1: Moderate right and mild to moderate left foraminal stenoses due to disc bulge and facet arthrosis. No petar ss canal stenosis. There is prominent facet arthrosis on the right. I MPRESSION: 1. Postsurgical changes related to posterior fusion at L3-L4 with laminectomies from L2 to L4. The L4 and L5 vertebral bodies are also partially fused. 2. Otherwise, no definite acute osseous abnormalities. 3. Mild to moderate multilevel spondylosis without gross canal stenosis. Please note that the spinal canal at L3-L4 is poorly visualized due to streak artifact. 4. Multilevel degenerative foraminal stenoses - mild to moderate right and mode rate left at L2-L3; moderate right and mild to moderate left at L5-S1. 5. Mil d bilateral sacroiliac degenerative changes. Signed by: Dr. Pal Hernandez M.D. on 01/06/2019 5:35 PM Dictated By: PAL HERNANDEZ MD Electronical ly Signed By: PAL HERNANDEZ MD on 01/06/19 1735 Transcribed By: MEIR on 0 01/06/19 173 COPY TO: CARLOS MCKINNEY MD
--- OUTSIDE RECORDS SUMMARY | 2019-07-17 16:53 | XMS REPORT ---
Author Author Gilda Gibbons Organization eClinicalWorks Address Unknown Phone Unavailable Care Team Providers Care Bullet Lubricant Mixer Name Role Phone Gilda Gibbons CP Unavailable [...] Date End Date Status Dosage Metoprolol Tartrate [facility] [id number] 50 mg Orally Twice a day Active 1 tablet Results No Known Results Summary Purpose eClinicalWorks Submission
--- OUTSIDE RECORDS SUMMARY | 2019-07-17 16:53 | XMS REPORT ---
Author Author Gilda Gibbons Organization [employer] Address Unknown Phone Unavailable Care Team Providers Care Certified Hyperbaric Technician Name Role Phone Gilda Gibbons CP [...]
--- OUTSIDE RECORDS SUMMARY | 2019-07-17 16:53 | XMS REPORT ---
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 Problem Stented coronary artery Z95.5 Active Problem Patient unable to exercise Z72.89 Active Problem Essential (primary) hypertension I10 Active Problem 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 Active Problem AICD present, double chamber Z95.810 Active Problem Carotid bruit R09.89 Active Problem [place] (dyspnea on exertion) R06.09 Active Assessment 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
--- OUTSIDE RECORDS SUMMARY | 2019-07-17 16:53 | XMS REPORT ---
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
--- OUTSIDE RECORDS SUMMARY | 2019-07-17 16:53 | XMS REPORT ---
Author Author Gilda Gibbons Organization [employer] Address Unknown Phone Unavailable Care Team Providers Care Chief Controller Tower Name Role Phone Gilda Gibbons CP Unavailable [...] Date End Date Status Dosage Metoprolol Tartrate [facility] 86957819664 50 mg Orally Twice a day Active 1 tablet Results No Known Results Summary Purpose eClinicalWorks Submission
--- OUTSIDE RECORDS SUMMARY | 2019-07-17 16:53 | XMS REPORT ---
Author Author Gilda Gibbons Organization [employer] Address Unknown Phone Unavailable Care Team Providers Care Oil Agent Name Role Phone Gilda Gibbons CP Unavailable [...] Instructions Start Date End Date Status Dosage Atorvastatin Calcium [facility] 87501010555 20 MG Orally Once a day Active 1 tablet Results No Known Results Summary Purpose eClinicalWorks Submission
--- OUTSIDE RECORDS SUMMARY | 2019-07-17 16:53 | XMS REPORT ---
Author Author Gilda Gibbons Organization [employer] Address Unknown Phone Unavailable Care Team Providers Care Hand Bander Name Role Phone Gilda Gibbons CP Unavailable [...] Date End Date Status Dosage Clopidogrel Bisulfate [facility] 89903783120 75 MG by mouth daily Active TAKE 1 TABLET BY MOUTH ONCE A DAY Results No Known Results Summary Purpose eClinicalWorks Submission
--- OUTSIDE RECORDS SUMMARY | 2019-07-17 16:53 | XMS REPORT ---
Author Author Gilda Gibbons Organization [employer] Address Unknown Phone Unavailable Care Team Providers Care Senior Regulatory Affairs Specialist Name Role Phone Gilda Gibbons CP Unavailable [...] Date End Date Status Dosage Clopidogrel Bisulfate [facility] 73655080873 75 MG by mouth daily Active TAKE 1 TABLET BY MOUTH ONCE A DAY Results No Known Results Summary Purpose eClinicalWorks Submission
[2019-07-17] MEDS ORDERED: SODIUM CHLORIDE 0.9% 500ML 500 ML IV ONE (17:15)
--- OUTSIDE RECORDS SUMMARY | 2019-07-17 17:20 | XMS REPORT | Continuity of Care Document ---
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 Name Role Phone [employer] Information [facility] Unavailable Unavailable Problems Problem Status Onset Date Classification Date Reported Comments Source M17.11 Active 06/23/2019 [facility] J32.8 - OTHER CHRONIC SINUSITIS Active 03/10/2016 [facility] VENTRICULAR PREMATURE DEPLORIZATION Active 12/12/2015 [facility] CCL/EPS, PVC ABLATION/CARTO/VVENOUS Active 12/12/2015 [facility] SEPSIS, ABDOMINAL PAIN Active 06/28/2014 [facility] ABDOMINAL PAIN, WEAKNESS Active 06/28/2014 [facility] SOB Active 04/23/2012 [facility] Rotator cuff syndrome (disorder) Active 06/09/2010 Problem 07/07/2019 Data migrated from [employer] on 06/18/15. Data migrated from [employer] on 06/18/15. 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 Problem 07/07/2019 [facility] Atherosclerosis of coronary artery bypass graft [...] Problem 10/30/2017 Gilda Gibbons SEPTICEMIA NOS Active [facility] UNILATERAL PRIMARY OSTEOARTHRITIS, RIGHT Active [facility] Medications Medication Details Route Status Patient Instructions Ordering Provider Order Date Source Lipitor 40 mg, 1 tab, Route: PO, Drug form: TAB, Daily, Start date: 01/04/16 9:00:00, Duration: 30 day, Stop date: 02/02/16 9:00:00Notes: (Same as: Lipitor) Inactive 01/04/2016 [facility] Crestor 20 mg, Route: PO, Drug form: TAB, Daily, Dosing Weight 91.818, kg, Start date: 01/04/16 9:00:00, Duration: 30 day, Stop date: 02/02/16 9:00:00 No Longer Active 01/04/2016 [facility] pantoprazole 40 mg, 1 tab, Route: PO, Drug form: ECTAB, Daily, Dosing Weight 91.818, kg, Start date: 01/04/16 9:00:00, Duration: 30 day, Stop date: 02/02/16 9:00:00Notes: Tablet should not be chewed or crushed. ( Same as: Protonix) Inactive 01/04/2016 [facility] carvedilol 6.25 mg, 1 tab, Route: PO, Drug form: TAB, Daily, Dosing Weight 91.818, kg, Start date: 01/04/16 9:00:00, Duration: 30 day, Stop date: 02/02/16 9:00:00Notes: Give with food. (Same As: Coreg) Inactive 01/04/2016 [facility] Ramipril 2.5 mg, 1 cap, Route: PO, Drug form: CAP, BID, Dosing Weight 91.818, kg, Start date: 01/03/16 17:00:00, Duration: 30 day, Stop date: 02/02/16 9:00:00Notes: (Same as:Altace) No Longer Active 01/03/2016 [facility] gabapentin 300 MG Oral Capsule 300 mg, 1 cap, Route: PO, Drug form: CAP, BID, Dosing Weight 91.818, kg, Start date: 01/03/16 17:00:00, Duration: 30 day, Stop date: 02/02/16 9:00:00Notes: (Same as: Neurontin) No Longer Active 01/03/2016 [facility] Morphine 2 mg, Route: IVP, ONCE, Dosing Weight 91.818, kg, Start date: 01/03/16 15:20:00, Stop date: 01/03/16 15:20:00 Inactive 01/03/2016 [facility] Aspirin 325 MG Oral Tablet 325 mg=1 tab, PO, Daily, # 30 tab, 0 Refill(s) Active 01/03/2016 [facility] Acetaminophen 325 MG / Hydrocodone Bitartrate 5 MG Oral Tablet [[place] 5/325] 1 tab, Route: PO, Drug Form: TAB, Dosing Weight 91.818, kg, Q4H, PRN Pain Score 1-3, Start date: 01/03/16 13:44:00, Duration: 30 day, Stop date: 02/02/16 13:43:00Notes: (Same as: [place] 325/5) Do not exceed 4gm/day of acetaminophen. No Longer Active 01/03/2016 [facility] Sodium Chloride 0.9% IV 1,000 mL 1,000 mL, Rate: 100 ml/hr, Infuse over: 10 hr, Route: IV, Dosing Weight 95.455 kg, Total Volume: 1,000, Start date: 01/03/16 9:27:00, Duration: 30 day, Stop date: 02/02/16 9:26:00 No Longer Active 01/03/2016 [facility] Potassium Chloride 40 mEq, 2 tab, Route: PO, Drug form: ERTAB, ONCE, Dosing Weight 95.455, kg, Start date: 07/02/14 10:45:00, Stop date: 07/02/14 10:45:00Notes: (Same as: K-Dur 20) "Do Not Crush" With food and full glass of water Inactive 07/02/2014 [facility] Docusate Sodium 100 MG Oral Capsule [Colace] 100 mg=1 cap, PO, BID, Constipation, # 60 cap, 0 Refill(s) Active 07/02/2014 [facility] polyethylene glycol 3350 oral powder for reconstitution 17 gm, PO, BID, # 12 ea, 0 Refill(s) Active 07/02/2014 [facility] Atropine 0.5 mg, 5 mL, Route: IVP, Drug form: INJ, ONCE, Dosing Weight 95.455, kg, PRN Bradycardia, Start date: 07/02/14 0:12:00, for symptomatic bradycardia HR Inactive 07/02/2014 [facility] Nitroglycerin 0.4 MG Sublingual Tablet 0.4 mg, 1 tab, Route: SL, Drug form: TAB, Q5Min, Dosing Weight 95.455, kg, PRN Chest Pain, Start date: 07/02/14 0:11:00, Duration: 30 day, Stop date: 08/01/14 0:10:00Notes: (Same as:Nitroquick, Nitrostat) "Do Not Crush" Sublingual tablet Inactive 07/02/2014 [facility] Miralax 17 gm, 1 pkt, Route: PO, Drug form: PWDR, BID, Dosing Weight 95.455, kg, Start date: 07/01/14 17:00:00, Duration: 30 day, Stop date: 07/31/14 9:00:00Notes: Dissolve in 8 oz of water or juice. (Same as: Miralax) No Longer Active 07/01/2014 [facility] Plavix 75 mg, 1 tab, Route: PO, Drug form: TAB, Daily, Dosing Weight 100, kg, Start date: 07/01/14 9:00:00, Duration: 30 day, Stop date: 07/30/14 9:00:00Notes: (Same As: Plavix) No Longer Active 07/01/2014 [facility] Coreg 25 mg, 2 tab, Route: PO, Drug form: TAB, Q12H, Dosing Weight 95.455, kg, Start date: 06/30/14 21:00:00, Duration: 30 day, Stop date: 07/30/14 9:00:00Notes: Give with food. (Same As: Coreg) No Longer Active 07/01/2014 [facility] Coreg 12.5 mg, 1 tab, Route: PO, Drug form: TAB, ONCE, Dosing Weight 95.455, kg, Start date: 06/30/14 18:07:00, Stop date: 06/30/14 18:07:00Notes: Give with food. (Same As: Coreg) Inactive 06/30/2014 [facility] Fleet Mineral Oil Enema 133 mL, Route: SC, Dosing Weight 100, kg, ONCE, Start date: 06/30/14 16:15:00, Stop date: 06/30/14 16:15:00 Inactive 06/30/2014 [facility] Lactulose 1,000 ml, Route: SC, Drug Form: CHILO, Dosing Weight 100, kg, Q6H, Start date: 06/30/14 11:15:00, Duration: 1 day, Stop date: 07/01/14 6:00:00, 300 mL lactulose + 700 mL waterSpecial Instructions: 300 mL lactulose + 700 mL waterNotes: Lactulose 300ml, Water for Irrigation 700ml - total [id number] No Longer Active 06/30/2014 [facility] AMIODarone 900 mg in D5W 500 ml IV 900 mg 900 mg, 482 mL, Rate: 1 mg/min for 6 hours, then reduce to 0.5 mg/min, Dosing Weight 100, kg, Route: IV, Total Volume: 482, Start Date: 06/29/14 20:11:00, Duration: 30 day, Stop date: 07/29/14 20:10:00, Replace Every: 24 hr Inactive 06/30/2014 [facility] Amiodarone 150 mg, Route: IVPB, ONCE, Dosing Weight 100, kg, Start date: 06/29/14 20:11:00, Stop date: 06/29/14 20:11:00 Inactive 06/30/2014 [facility] Dulcolax Laxative 10 mg, 1 supp, Route: SC, Drug form: SUPP, ONCE, Dosing Weight 100, kg, PRN as needed for constipation, Priority: STAT, Start date: 06/29/14 17:06:00Notes: (Same As: Dulcolax, Bisco-Lax) Inactive 06/29/2014 [facility] Crestor 20 mg, 2 tab, Route: PO, Drug form: TAB, Daily, Dosing Weight 100, kg, Start date: 06/29/14 9:00:00, Duration: 30 day, Stop date: 07/28/14 9:00:00Notes: (Same As: Crestor) No Longer Active 06/29/2014 [facility] Ramipril 2.5 mg, 1 cap, Route: PO, Drug form: CAP, BID, Dosing Weight 100, kg, Start date: 06/29/14 9:00:00, Duration: 30 day, Stop date: 07/28/14 17:00:00Notes: (Same as:Altace) No Longer Active 06/29/2014 [facility] pantoprazole 40 mg, 1 tab, Route: PO, Drug form: ECTAB, Daily, Dosing Weight 100, kg, Start date: 06/29/14 9:00:00, Duration: 30 day, Stop date: 07/28/14 9:00:00Notes: Tablet should not be chewed or crushed. (Same as: Protonix) No Longer Active 06/29/2014 [facility] gabapentin 300 MG Oral Capsule 300 mg, 1 cap, Route: PO, Drug form: CAP, BID, Dosing Weight 100, kg, Start date: 06/29/14 9:00:00, Duration: 30 day, Stop date: 07/28/14 17:00:00Notes: (Same as: Neurontin) No Longer Active 06/29/2014 [facility] Aspirin 81 MG Enteric Coated Tablet 81 mg, 1 tab, Route: PO, Drug form: ECTAB, Daily, Dosing Weight 100, kg, Start date: 06/29/14 9:00:00, Duration: 30 day, Stop date: 07/28/14 9:00:00Notes: Do not crush or chew. (Same As: Ecotrin) No Longer Active 06/29/2014 [facility] carvedilol 12.5 mg, 1 tab, Route: PO, Drug form: TAB, Daily, Dosing Weight 100, kg, Start date: 06/29/14 9:00:00, Stop date: 07/28/14 9:00:00Notes: Give with food. (Same As: Coreg) No Longer Active 06/29/2014 [facility] Saline Flush 0.9% 5 ml, Route: IVP, Drug Form: INJ, Dosing Weight 100, kg, Q12H, Start date: 06/29/14 9:00:00, Duration: 30 day, Stop date: 07/28/14 21:00:00Notes: (Same as: BD Posiflush) No Longer Active 06/29/2014 [facility] Saline Flush 0.9% 5 ml, Route: IVP, Drug Form: INJ, Dosing Weight 100, kg, PRN, PRN Line Flush, Start date: 06/29/14 8:39:00, Duration: 30 day, Stop date: 07/29/14 8:38:00 Inactive 06/29/2014 [facility] Sodium Chloride 0.154 MEQ/ML Injectable Solution 1,000 mL, Rate: 125 ml/hr, Infuse over: 8 hr, Route: IV, Dosing Weight 100 kg, Total Volume: 1,000, Start date: 06/29/14 8:39:00, Duration: 30 day, Stop date: 07/29/14 8:38:00 Inactive 06/29/2014 [facility] Ciprofloxacin 2 MG/ML Injectable Solution [Cipro] 400 mg, 200 mL, Route: IVPB, Drug form: INJ, [id number], Dosing Weight 100, kg, Start date: 06/29/14 8:00:00, Duration: 30 day, Stop date: 07/28/14 20:00:00Notes: Do not refrigerate No Longer Active 06/29/2014 [facility] Flagyl 500 mg, 100 mL, Route: IVPB, Drug form: INJ, [id number], Dosing Weight 100, kg, Start date: 06/29/14 8:00:00, Duration: 30 day, Stop date: 07/29/14 4:00:00Notes: (Same as: Flagyl) Avoid alcohol. No Longer Active 06/29/2014 [facility] Enoxaparin 30 mg, 0.3 mL, Route: SUB-Q, Drug form: INJ, [id number], Dosing Weight 100, kg, Start date: 06/29/14 8:00:00, Duration: 30 day, Stop date: 07/28/14 8:00:00Notes: (Same as: Lovenox) No Longer Active 06/29/2014 [facility] Potassium Chloride 20 mEq, 100 mL, Route: IVPB, Drug form: INJ, Q2H, Dosing Weight 100, kg, Total dose=40 mEq, Start date: 06/29/14 8:00:00, Duration: 2 doses or times, Stop date: 06/29/14 10:00:00Notes: (Same as: KCL) Infuse no faster than 10 mEq/hr if given peripherally. Inactive 06/29/2014 [facility] Acetaminophen 650 mg, 2 tab, Route: PO, Drug form: TAB, Q6H, Dosing Weight 100, kg, PRN Fever, Start date: 06/29/14 7:21:00, Duration: 30 day, Stop date: 07/29/14 7:20:00Notes: Do not exceed 4 gm/day. (Same as: T gangaenol) No Longer Active 06/29/2014 [facility] Zofran 4 mg, 2 mL, Route: IVP, Drug form: INJ, Q8H, Dosing Weight 100, kg, PRN as needed for nausea/vomiting, Priority: STAT, Start date: 06/29/14 7:21:00, Duration: 30 day, Stop date: 07/29/14 7:20:00Notes: (Same as: Zofran) No Longer Active 06/29/2014 [facility] Clonidine Hydrochloride 0.1 MG Oral Tablet 0.1 mg, 1 tab, Route: PO, Drug form: TAB, Q8H, Dosing Weight 100, kg, PRN Elevated BP, Start date: 06/29/14 7:21:00, Duration: 30 day, Stop date: 07/29/14 7:20:00, SBP >160Notes: (Same As: Catapres) No Longer Active 06/29/2014 [facility] NS 1000 mL 1,000 mL, Rate: 100 ml/hr, Infuse over: 10 hr, Route: IV, Dosing Weight 100 kg, Total Volume: 1,000, Start date: 06/29/14 7:21:00, Duration: 30 day, Stop date: 07/29/14 7:20:00 Inactive 06/29/2014 [facility] Morphine 2 mg, 1 mL, Route: IVP, Drug form: INJ, Q4H, Dosing Weight 100, kg, PRN Pain, Start date: 06/29/14 7:21:00, Duration: 30 day, Stop date: 07/29/14 7:20:00Notes: (Same as:MORPhine Sulfate) No Longer Active 06/29/2014 [facility] Morphine 2 mg, Route: IVP, Drug form: INJ, ONCE, Dosing Weight 100, kg, Priority: STAT, Start date: 06/29/14 5:19:00, Stop date: 06/29/14 5:19:00 Inactive 06/29/2014 [facility] Sodium Chloride 0.154 MEQ/ML Injectable Solution 1,000 mL, 1,000 ml/hr, Infuse Over: 1 hr, Route: IV, 1,000, Drug form: INJ, ONCE, Priority: STAT, Dosing Weight 100 kg, Start date: 06/29/14 5:09:00, Duration: 1 doses or times, Stop date: 06/29/14 5:09:00 Inactive 06/29/2014 [facility] Morphine 2 mg, Route: IVP, Drug form: INJ, ONCE, Dosing Weight 100, kg, Priority: STAT, Start date: 06/29/14 2:54:00, Stop date: 06/29/14 2:54:00 Inactive 06/29/2014 [facility] Vancomycin 2 gm, 500 mL, Route: IVPB, Drug form: SOLN, ONCE, Dosing Weight 100, kg, Priority: STAT, Start date: 06/29/14 1:50:00, Stop date: 06/29/14 1:50:00Notes: Same as: Vancocin Infusion rate 2001 mg: infuse over 2.5 hours Inactive 06/29/2014 [facility] Zosyn 4.5 gm, Route: IVPB, Drug form: INJ, ONCE, Dosing Weight 100, kg, Priority: STAT, Start date: 06/29/14 1:50:00, Stop date: 06/29/14 1:50:00 Inactive 06/29/2014 [facility] Sodium Chloride 0.154 MEQ/ML Injectable Solution 1,000 mL, 1,000 ml/hr, Infuse Over: 1 hr, Route: IV, ONCE, Priority: STAT, Dosing Weight 100 kg, Start date: 06/29/14 1:08:00, Duration: 1 doses or times, Stop date: 06/29/14 1:08:00 Inactive 06/29/2014 [facility] Ondansetron 4 mg, Route: IVP, ONCE, Dosing Weight 100, kg, Priority: STAT, Start date: 06/29/14 0:47:00, Stop date: 06/29/14 0:47:00 Inactive 06/29/2014 [facility] Morphine 4 mg, Route: IVP, ONCE, Dosing Weight 100, kg, Priority: STAT, Start date: 06/29/14 0:47:00, Stop date: 06/29/14 0:47:00 Inactive 06/29/2014 [facility] Sodium Chloride 0.154 MEQ/ML Injectable Solution 1,000 mL, Infuse Over: 1 hr, Route: IV, ONCE, Priority: STAT, Dosing Weight 100 kg, Start date: 06/29/14 0:47:00, Duration: 1 doses or times, Stop date: 06/29/14 0:47:00 Inactive 06/29/2014 [facility] Saline Flush 0.9% 10 mL, Route: IVP, Drug Form: INJ, Dosing Weight 100, kg, PRN, PRN Line Flush, Start date: 06/29/14 0:47:00, Duration: 30 day, Stop date: 07/29/14 0:46:00Notes: (Same as: BD Posiflush) No Longer Active 06/29/2014 [facility] Nitrostat TAKE 1 TABLET UNDER THE [...] No Known Medication Allergies Assertion Drug allergy [facility] Immunizations No Data Provided for This Section Results Order Name Results Value Reference Range Date Interpretation Comments Source HEMATOLOGY POC Activated Clotting Time 195 01/03/2016 [facility] CHEM PANEL Calcium Lvl 8.8 8.5 - 10.5 01/03/2016 [facility] CHEM PANEL eGFR 60 01/03/2016 Result Comment: [...] should be multiplied by the estimated BMI. [facility] CHEM PANEL BUN 29 7 - 22 01/03/2016 [facility] CHEM PANEL CO2 26 24 - 32 01/03/2016 [facility] CHEM PANEL Chloride Lvl 106 95 - 109 01/03/2016 [facility] CHEM PANEL Potassium Lvl 4.1 3.5 - 5.1 01/03/2016 [facility] CHEM PANEL Glucose Lvl 104 70 - 99 01/03/2016 [facility] CHEM PANEL Creatinine Lvl 1.22 0.50 - 1.40 01/03/2016 [facility] CHEM PANEL Sodium Lvl 139 135 - 145 01/03/2016 [facility] CHEM PANEL AGAP 11.1 10.0 - 20.0 01/03/2016 [facility] CHEM PANEL Magnesium Lvl 2.2 1.8 - 2.4 01/03/2016 [facility] HEMATOLOGY PTT 27.7 22.9 - 35.8 01/03/2016 [facility] HEMATOLOGY PT 14.0 12.0 - 14.7 01/03/2016 [facility] HEMATOLOGY INR 1.05 0.85 - 1.17 01/03/2016 [facility] HEMATOLOGY MPV 7.4 7.4 - 10.4 01/03/2016 [facility] HEMATOLOGY Platelet 180 133 - 450 01/03/2016 [facility] HEMATOLOGY RDW 14.2 11.5 - 14.5 01/03/2016 [facility] HEMATOLOGY MCH 28.3 27.0 - 31.0 01/03/2016 [facility] HEMATOLOGY MCHC 32.1 32.0 - 36.0 01/03/2016 [facility] HEMATOLOGY RBC 4.97 4.70 - 6.10 01/03/2016 [facility] HEMATOLOGY MCV 88.0 80.0 - 94.0 01/03/2016 [facility] HEMATOLOGY Hgb 14.1 14.0 - 18.0 01/03/2016 [facility] HEMATOLOGY Hct 43.7 42.0 - 54.0 01/03/2016 [facility] HEMATOLOGY WBC 11.4 3.7 - 10.4 01/03/2016 [facility] HEMATOLOGY Segs 80.1 45.0 - 75.0 01/03/2016 [facility] HEMATOLOGY Plt Morph Normal (01/03/16 9:54 AM) 01/03/2016 [facility] HEMATOLOGY RBC Morph Normal (01/03/16 9:54 AM) 01/03/2016 [facility] HEMATOLOGY Monocytes 6.4 2.0 - 12.0 01/03/2016 [facility] HEMATOLOGY Lymphocytes 9.0 20.0 - 40.0 01/03/2016 [facility] HEMATOLOGY Segs-Bands # 9.1 1.5 - 8.1 01/03/2016 [facility] HEMATOLOGY Basophils 3.0 0.0 - 1.0 01/03/2016 [facility] HEMATOLOGY Eosinophils 1.5 0.0 - 4.0 01/03/2016 [facility] HEMATOLOGY Lymphocytes # 1.0 1.0 - 5.5 01/03/2016 [facility] HEMATOLOGY Basophils # 0.3 0.0 - 0.2 01/03/2016 [facility] HEMATOLOGY Eosinophils # 0.2 0.0 - 0.5 01/03/2016 [facility] HEMATOLOGY Monocytes # 0.7 0.0 - 0.8 01/03/2016 [facility] BLOOD BANK RESULTS ABO/Rh B POS 01/03/2016 [facility] BLOOD BANK RESULTS Antibody Scrn Negative (01/03/16 9:25 AM) 01/03/2016 [facility] CHEM PANEL A/G Ratio 0.7 0.7 - 1.6 07/02/2014 [facility] CHEM PANEL B/C Ratio 16 6 - 25 07/02/2014 [facility] CHEM PANEL Globulin 3.0 2.0 - 4.0 07/02/2014 [facility] CHEM PANEL AGAP 12.4 10.0 - 20.0 07/02/2014 [facility] CHEM PANEL eGFR 76 07/02/2014 <sup>1</sup>Result [...] should be multiplied by the estimated BMI. [facility] CHEM PANEL Chloride Lvl 110 95 - 109 07/02/2014 [facility] CHEM PANEL BUN 16 7 - 22 07/02/2014 [facility] CHEM PANEL Sodium Lvl 140 135 - 145 07/02/2014 [facility] CHEM PANEL Potassium Lvl 3.4 3.5 - 5.1 07/02/2014 [facility] CHEM PANEL Creatinine Lvl 1.0 0.5 - 1.4 07/02/2014 [facility] CHEM PANEL Glucose Lvl 128 70 - 99 07/02/2014 <sup>5</sup>Interpretive Data: Adult reference range values reflect the clinical guidelines
of the [place] [employer]. [facility] CHEM PANEL ALT 19 0 - 65 07/02/2014 [facility] CHEM PANEL Bili Total 0.3 0.2 - 1.3 07/02/2014 [facility] CHEM PANEL AST 20 0 - 37 07/02/2014 [facility] CHEM PANEL Alk Phos 73 39 - 136 07/02/2014 [facility] CHEM PANEL Total Protein 5.0 6.4 - 8.4 07/02/2014 [facility] CHEM PANEL Albumin Lvl 2.0 3.5 - 5.0 07/02/2014 [facility] CHEM PANEL CO2 21 24 - 32 07/02/2014 [facility] CHEM PANEL Calcium Lvl 7.5 8.5 - 10.5 07/02/2014 [facility] HEMATOLOGY Eosinophils 0.5 0.0 - 4.0 07/02/2014 [facility] HEMATOLOGY Monocytes 6.4 2.0 - 12.0 07/02/2014 [facility] HEMATOLOGY Lymphocytes 7.6 20.0 - 40.0 07/02/2014 [facility] HEMATOLOGY Segs 85.3 45.0 - 75.0 07/02/2014 [facility] HEMATOLOGY Eosinophils # 0.1 0.0 - 0.5 07/02/2014 [facility] HEMATOLOGY Monocytes # 0.7 0.0 - 0.8 07/02/2014 [facility] HEMATOLOGY Lymphocytes # 0.9 1.0 - 5.5 07/02/2014 [facility] Segs-Bands # 9.5 1.5 - 8.1 07/02/2014 [facility] Basophils 0.2 0.0 - 1.0 07/02/2014 [facility] RBC 3.58 4.70 - 6.10 07/02/2014 [facility] WBC 11.2 3.7 - 10.4 07/02/2014 [facility] Hct 32.1 42.0 - 54.0 07/02/2014 [facility] Hgb 11.3 14.0 - 18.0 07/02/2014 [facility] MCV 89.6 80.0 - 94.0 07/02/2014 [facility] MCH 31.5 27.0 - 31.0 07/02/2014 [facility] RDW 13.7 11.5 - 14.5 07/02/2014 [facility] MCHC 35.1 32.0 - 36.0 07/02/2014 [facility] MPV 7.3 7.4 - 10.4 07/02/2014 [facility] Platelet 173 133 - 450 07/02/2014 [facility] CARDIAC ENZYMES CK MB Index 3.1 0.0 - 2.5 06/30/2014 [facility] CARDIAC ENZYMES CK MB 4.0 0.5 - 3.6 06/30/2014 [facility] CARDIAC ENZYMES Total CK 129 12 - 191 06/30/2014 [facility] CARDIAC ENZYMES Troponin-I 0.46 0.00 - 0.40 06/30/2014 [facility] CHEM PANEL eGFR 68 06/30/2014 <sup>2</sup>Result [...] should be multiplied by the estimated BMI. [facility] CHEM PANEL CO2 20 24 - 32 06/30/2014 [facility] CHEM PANEL AGAP 11.0 10.0 - 20.0 06/30/2014 [facility] CHEM PANEL Calcium Lvl 7.2 8.5 - 10.5 06/30/2014 [facility] CHEM PANEL Glucose Lvl 140 70 - 99 06/30/2014 <sup>6</sup>Interpretive Data: Adult reference range values reflect the clinical guidelines
of the [place] [employer]. [facility] CHEM PANEL BUN 28 7 - 22 06/30/2014 [facility] CHEM PANEL Sodium Lvl 137 135 - 145 06/30/2014 [facility] CHEM PANEL Creatinine Lvl 1.1 0.5 - 1.4 06/30/2014 [facility] CHEM PANEL Potassium Lvl 5.0 3.5 - 5.1 06/30/2014 [facility] CHEM PANEL Chloride Lvl 111 95 - 109 06/30/2014 [facility] HEMATOLOGY Segs-Bands # 14.7 1.5 - 8.1 06/30/2014 [facility] HEMATOLOGY Monocytes # 1.9 0.0 - 0.8 06/30/2014 [facility] HEMATOLOGY Lymphocytes # 0.8 1.0 - 5.5 06/30/2014 [facility] HEMATOLOGY Plt Morph Normal (06/30/14 6:05 AM) 06/30/2014 [facility] HEMATOLOGY Monocytes 10.7 2.0 - 12.0 06/30/2014 [facility] HEMATOLOGY Lymphocytes 4.8 20.0 - 40.0 06/30/2014 [facility] HEMATOLOGY Segs 84.4 45.0 - 75.0 06/30/2014 [facility] HEMATOLOGY Basophils 0.1 0.0 - 1.0 06/30/2014 [facility] HEMATOLOGY RBC Morph Normal (06/30/14 6:05 AM) 06/30/2014 [facility] HEMATOLOGY Platelet 123 133 - 450 06/30/2014 [facility] HEMATOLOGY MPV 8.4 7.4 - 10.4 06/30/2014 [facility] HEMATOLOGY RDW 14.7 11.5 - 14.5 06/30/2014 [facility] HEMATOLOGY MCHC 32.1 32.0 - 36.0 06/30/2014 [facility] MCH 30.0 27.0 - 31.0 06/30/2014 [facility] HEMATOLOGY MCV 93.6 80.0 - 94.0 06/30/2014 [facility] HEMATOLOGY Hct 46.3 42.0 - 54.0 06/30/2014 [facility] HEMATOLOGY Hgb 14.8 14.0 - 18.0 06/30/2014 [facility] HEMATOLOGY RBC 4.94 4.70 - 6.10 06/30/2014 [facility] WBC 17.4 3.7 - 10.4 06/30/2014 [facility] CARDIAC ENZYMES Total CK 130 12 - 191 06/29/2014 [facility] CARDIAC ENZYMES Troponin-I 1.33 0.00 - 0.40 06/29/2014 <sup>12</sup>Result Comment: Critical Result(s) called to Bradly Ayala at 06/29/2014 16:54 by MARTÍNEZ. Read back OK. [facility] CARDIAC ENZYMES CK MB 8.0 0.5 - 3.6 06/29/2014 [facility] CARDIAC ENZYMES CK MB Index 6.2 0.0 - 2.5 06/29/2014 [facility] URINE AND STOOL UA Ketones Negative mg/dL Negative mg/dL 06/29/2014 [facility] URINE AND STOOL UA Glucose Negative mg/dL Negative mg/dL 06/29/2014 [facility] URINE AND STOOL UA Urobilinogen 2.0 0.1 - 1.0 06/29/2014 [facility] URINE AND STOOL UA Blood Negative (06/29/14 3:30 PM) Negative 06/29/2014 [facility] URINE AND STOOL UA Bili Negative *NA* (06/29/14 3:30 PM) Negative 06/29/2014 [facility] URINE AND STOOL UA Mucus Few /LPF None Seen /LPF 06/29/2014 [facility] URINE AND STOOL UA RBC 2 0 - 2 06/29/2014 [facility] URINE AND STOOL UA Leuk Est Small *ABN* (06/29/14 3:30 PM) Negative 06/29/2014 [facility] URINE AND STOOL UA Nitrite Negative (06/29/14 3:30 PM) Negative 06/29/2014 [facility] URINE AND STOOL UA Sq Epi Occasional /LPF Few /LPF 06/29/2014 [facility] URINE AND STOOL UA Protein Negative mg/dL Negative mg/dL 06/29/2014 [facility] URINE AND STOOL UA pH 5.0 5.0 - 8.0 06/29/2014 [facility] URINE AND STOOL UA Spec Grav 1.018 <=1.030 06/29/2014 [facility] URINE AND STOOL UA Turbidity Slight *ABN* (06/29/14 3:30 PM) Clear 06/29/2014 [facility] URINE AND STOOL UA Color Yellow *NA* (06/29/14 3:30 PM) Yellow 06/29/2014 [facility] CARDIAC ENZYMES CK MB 8.9 0.5 - 3.6 06/29/2014 [facility] CARDIAC ENZYMES Total CK 124 12 - 191 06/29/2014 [facility] CARDIAC ENZYMES Troponin-I 1.11 0.00 - 0.40 06/29/2014 <sup>13</sup>Result Comment: Critical Result(s) called to nahum ayala at 06/29/2014 10:50 by sb. Read back OK. [facility] CHEM PANEL Calcium Lvl 7.8 8.5 - 10.5 06/29/2014 [facility] CHEM PANEL Phosphorus 3.3 2.5 - 4.5 06/29/2014 [facility] CHEM PANEL Magnesium Lvl 3.9 1.8 - 2.4 06/29/2014 <sup>8</sup>Result Comment: Critical Result(s) called to feli rangel at 06/29/2014 10:47 by sb. Read back OK. [facility] CHEM PANEL Calcium Lvl 7.8 8.5 - 10.5 06/29/2014 [facility] CHEM PANEL BUN 28 7 - 22 06/29/2014 [facility] CHEM PANEL Glucose Lvl 149 70 - 99 06/29/2014 <sup>7</sup>Interpretive Data: Adult reference range values reflect the clinical guidelines
of the [place] [employer]. [facility] CHEM PANEL Sodium Lvl 138 135 - 145 06/29/2014 [facility] CHEM PANEL Creatinine Lvl 1.9 0.5 - 1.4 06/29/2014 [facility] CHEM PANEL eGFR 35 06/29/2014 <sup>3</sup>Result [...] should be multiplied by the estimated BMI. [facility] CHEM PANEL Chloride Lvl 110 95 - 109 06/29/2014 [facility] CHEM PANEL Potassium Lvl 4.8 3.5 - 5.1 06/29/2014 [facility] CHEM PANEL CO2 20 24 - 32 06/29/2014 [facility] CHEM PANEL AGAP 12.8 10.0 - 20.0 06/29/2014 [facility] CHEM PANEL eGFR 35 06/29/2014 <sup>4</sup>Result [...] should be multiplied by the estimated BMI. [facility] CHEM PANEL Creatinine Lvl 1.9 0.5 - 1.4 06/29/2014 [facility] HEMATOLOGY Platelet 223 133 - 450 06/29/2014 [facility] HEMATOLOGY PTT 48.1 22.9 - 35.8 06/29/2014 <sup>15</sup>Interpretive Data: Heparin Therapeutic Range: 57 - 92 Seconds [facility] BACTERIAL - SEROLOGY MRSA by PCR [...] by the [facility] within the [facility]. The [facility] is authorized under the Clinical Laboratory Improvement Amendment of 1988 (CLIA-88) to perform high complexity testing. [facility] Lymphocytes # 0.6 1.0 - 5.5 06/29/2014 [facility] Segs 89.1 45.0 - 75.0 06/29/2014 [facility] Lymphocytes 2.3 20.0 - 40.0 06/29/2014 [facility] Monocytes 8.6 2.0 - 12.0 06/29/2014 [facility] Segs-Bands # 21.0 1.5 - 8.1 06/29/2014 [facility] Monocytes # 2.0 0.0 - 0.8 06/29/2014 [facility] RBC 4.66 4.70 - 6.10 06/29/2014 [facility] MCH 30.3 27.0 - 31.0 06/29/2014 [facility] MCV 91.8 80.0 - 94.0 06/29/2014 [facility] Hct 42.8 42.0 - 54.0 06/29/2014 [facility] Hgb 14.1 14.0 - 18.0 06/29/2014 [facility] RDW 14.3 11.5 - 14.5 06/29/2014 [facility] MPV 7.1 7.4 - 10.4 06/29/2014 [facility] HEMATOLOGY MCHC 33.0 32.0 - 36.0 06/29/2014 [facility] HEMATOLOGY WBC 23.6 3.7 - 10.4 06/29/2014 [facility] CHEM PANEL B/C Ratio 10 6 - 25 06/29/2014 [facility] CHEM PANEL Globulin 4.1 2.0 - 4.0 06/29/2014 [facility] CHEM PANEL A/G Ratio 0.9 0.7 - 1.6 06/29/2014 [facility] CHEM PANEL Albumin Lvl 3.5 3.5 - 5.0 06/29/2014 [facility] CHEM PANEL ALT 35 0 - 65 06/29/2014 [facility] CHEM PANEL Total Protein 7.6 6.4 - 8.4 06/29/2014 [facility] CHEM PANEL AST 38 0 - 37 06/29/2014 [facility] CHEM PANEL Alk Phos 151 39 - 136 06/29/2014 [facility] CHEM PANEL Bili Total 0.6 0.2 - 1.3 06/29/2014 [facility] CHEM PANEL Magnesium Lvl 4.7 1.8 - 2.4 06/29/2014 <sup>9</sup>Result Comment: Critical Result(s) called to alyssarn at 06/29/2014 06:48 by/leke. Read back OK. [facility] URINE AND STOOL UA pH 5.0 5.0 - 8.0 06/29/2014 [facility] URINE AND STOOL UA Ketones Negative mg/dL Negative mg/dL 06/29/2014 [facility] URINE AND STOOL UA Glucose Negative mg/dL Negative mg/dL 06/29/2014 [facility] URINE AND STOOL UA Nitrite Negative (06/29/14 5:15 AM) Negative 06/29/2014 [facility] URINE AND STOOL UA Urobilinogen 2.0 0.1 - 1.0 06/29/2014 [facility] URINE AND STOOL UA Blood Negative (06/29/14 5:15 AM) Negative 06/29/2014 [facility] URINE AND STOOL UA Bili Negative *NA* (06/29/14 5:15 AM) Negative 06/29/2014 [facility] URINE AND STOOL UA Mucus Few /LPF None Seen /LPF 06/29/2014 [facility] URINE AND STOOL UA RBC <1 0 - 2 06/29/2014 [facility] URINE AND STOOL UA Leuk Est Negative (9/5/14 5:15 AM) Negative 06/29/2014 [facility] URINE AND STOOL UA WBC 1 0 - 5 06/29/2014 [facility] URINE AND STOOL UA Sq Epi Occasional /LPF Few /LPF 06/29/2014 [facility] URINE AND STOOL UA Protein Negative mg/dL Negative mg/dL 06/29/2014 [facility] URINE AND STOOL UA Color Yellow *NA* (06/29/14 5:15 AM) Yellow 06/29/2014 [facility] URINE AND STOOL UA Turbidity Clear (06/29/14 5:15 AM) Clear 06/29/2014 [facility] URINE AND STOOL UA Spec Grav 1.032 <=1.030 06/29/2014 [facility] CHEM PANEL Lactic Acid Lvl 5.9 0.5 - 2.2 06/29/2014 <sup>11</sup>Result Comment: Critical Result(s) called to alyssarn at 06/29/2014 06:48 by/elke. Read back OK. [facility] CARDIAC ENZYMES CK MB Index 1.3 0.0 - 2.5 06/29/2014 [facility] CHEM PANEL Phosphorus 5.0 2.5 - 4.5 06/29/2014 [facility] CHEM PANEL Magnesium Lvl 4.6 1.8 - 2.4 06/29/2014 <sup>10</sup>Result Comment: Critical Result(s) called to ed hair at 06/29/2014 02:20 by/elke. Read back OK. [facility] CHEM PANEL Lipase Lvl 254 73 - 393 06/29/2014 [facility] CHEM PANEL Amylase Lvl 79 25 - 115 06/29/2014 [facility] CHEM PANEL A/G Ratio 0.8 0.7 - 1.6 06/29/2014 [facility] CHEM PANEL Globulin 4.2 2.0 - 4.0 06/29/2014 [facility] CHEM PANEL B/C Ratio 10 6 - 25 06/29/2014 [facility] CHEM PANEL AST 39 0 - 37 06/29/2014 [facility] CHEM PANEL ALT 34 0 - 65 06/29/2014 [facility] CHEM PANEL Total Protein 7.6 6.4 - 8.4 06/29/2014 [facility] CHEM PANEL Albumin Lvl 3.4 3.5 - 5.0 06/29/2014 [facility] CHEM PANEL Bili Total 0.6 0.2 - 1.3 06/29/2014 [facility] CHEM PANEL Alk Phos 151 39 - 136 06/29/2014 [facility] HEMATOLOGY Basophils # 0.1 0.0 - 0.2 06/29/2014 [facility] HEMATOLOGY Basophils 0.2 0.0 - 1.0 06/29/2014 [facility] HEMATOLOGY PT 15.7 12.0 - 14.7 06/29/2014 [facility] HEMATOLOGY INR 1.24 0.85 - 1.17 06/29/2014 <sup>14</sup>Interpretive Data: RECOMMENDED RANGES FOR PROTIME INR:
2.0-3.0 for most medical and surgical thromboembolic states.
2.5-3.5 for artificial heart valves and recurrent embolism.

INR SHOULD BE USED ONLY FOR PATIENTS ON STABLE ANTICOAGULANT THERAPY. [facility] PTT 53.1 22.9 - 35.8 06/29/2014 <sup>16</sup>Interpretive Data: Heparin Therapeutic Range: 57 - 92 Seconds [facility] Pathology Reports No Data Provided for [...] in the right knee. JOSUÉ Kaur 07/05/2019 [facility] Abscess localization scan NM Clinical Indication: [...] No evidence of abscess or infection. SL: [id number] 08/12/2017 [facility] Knee 4+ views unilateral DX EXAM: [...] ACL reconstruction without hardware complication identified. 08/05/2017 [facility] Abdomen 2 views Abdomen 2 views: There is mild colon distention with small amount of fluid, unchanged in appearance from 07/01/2014. There is no significant small bowel distention, with a small amount of fluid noted in the distal small bowel. There is no evidence of pneumoperitoneum. There is no other significant change. SL:13 07/02/2014 [facility] Abdomen 2 views ABDOMINAL RADIOGRAPH 2 VIEWS INDICATION: Abdominal distention COMPARISON: None IMPRESSION: 1. There is no bowel dilatation or evidence of pneumoperitoneum. 2. Cholecystectomy clips are in place. No potential urolithiasis is seen. SL: 16 07/01/2014 [facility] Chest 1view PORTABLE CHEST 06/29/2014 AT [...] prominent on the left. SL: 12 06/29/2014 [facility] Chest/Abdomen/Pelvis w IV contrast CT CT [...] and cholecystectomy. 3. Constipation. SL: 12 06/29/2014 [facility] Consultation Notes No Data Provided for This Section Discharge Summaries No Data Provided for This Section History and Physicals No Data Provided for This Section Vital Signs Vital Sign Value Date Comments Source Systolic (mm Hg) 159 01/04/2016 [facility] Diastolic (mm Hg) 74 01/04/2016 [facility] Systolic (mm Hg) 159 01/04/2016 [facility] Diastolic (mm Hg) 74 01/04/2016 [facility] Systolic (mm Hg) 159 01/04/2016 [facility] Diastolic (mm Hg) 74 01/04/2016 [facility] BMI Calculated 29.04 01/03/2016 [facility] Weight 91.818 01/03/2016 [facility] Height 177.8 cm 01/03/2016 [facility] Diastolic (mm Hg) 75 07/02/2014 [facility] Systolic (mm Hg) 149 07/02/2014 [facility] Temperature Oral (F) 98.6 F 07/02/2014 [facility] Heart Rate 76 07/02/2014 [facility] Respitory Rate 19 07/02/2014 [facility] Systolic (mm Hg) 145 07/02/2014 [facility] Diastolic (mm Hg) 73 07/02/2014 [facility] Temperature Oral (F) 98.1 F 07/02/2014 [facility] Respitory Rate 18 07/02/2014 [facility] Heart Rate 75 07/02/2014 [facility] Diastolic (mm Hg) 55 07/02/2014 [facility] Systolic (mm Hg) 121 07/02/2014 [facility] Temperature Oral (F) 98.6 F 07/02/2014 [facility] Heart Rate 79 07/02/2014 [facility] Respitory Rate 20 07/02/2014 [facility] Height 175.26 cm 06/30/2014 [facility] BMI Calculated 31.08 06/30/2014 [facility] Weight 95.455 06/30/2014 [facility] BMI Calculated 31.63 06/29/2014 [facility] Height 177.8 cm 06/29/2014 [facility] Weight 100 06/29/2014 [facility] Encounters Location Location Details Encounter Type Encounter Number Reason For Visit Attending Provider ADM Date DC Date Status Source [facility] Emergency [id number] SOB DANIELA HULL 04/23/2012 Active [facility] Inpatient [id number] Deric Teqwimuah 06/29/2014 07/02/2014 [facility] Bedded Outpatient [id number] Otilialashaunzuri Hematpour 01/03/2016 01/04/2016 [facility] [place] [facility] Di[facility] [id number] Buddy Plummer 08/05/2017 08/06/2017 [facility] Outpatient [id number] Buddy Plummer 08/12/2017 08/13/2017 [facility] Outpatient [id number] Daniela Roberson 07/05/2019 07/06/2019 [facility] Procedures Procedure Code Date Perfomer Comments Source Coronary artery bypass grafts x 5 [id number] [facility] [place] Fusion [id number] [facility] [place] Incision and drainage of wound [id number] [facility] [place] Knee joint operation [id number] [facility] [place] Laminectomy [id number] [facility] [place] Shoulder joint operations [id number] [facility] [place] Assessment and Plan Assessment and Plan Date Source Extracted from:Title: Clinical Document Author: Maryuri Anderson MD Date: 07/01/14 Progress Daily [facility] SUBJECTIVE Patient Examed, Chart Reviewed, events noted. [...] [phone] 06/30 24hr Tot [id number] Labs (Last four charted values) WBC [...] (1):Sodium Chloride 0.9% IV 1,000 mL 07/02/2014 [facility] Plan of Care No Data Provided [...] Cessation Counseling No entered on: 01/03/16 01/04/2016 [facility] Social History TypeResponse Smoking Status Smoker, current status unknown; Type: Cigarettes; Exposure to Tobacco Smoke None; Cigarette Smoking Last 365 Days No; Reg Smoking Cessation Counseling No 01/04/2016 [facility] Family History No Data Provided for This Section Advance Directives No Data Provided for This Section Functional Status No Data Provided for This Section
--- NOTE | 2019-07-17 17:37 | NUR ---
PT TO BE ADMITTED, PT AND FAMILY AWARE OF POC, PT VOICES NO COMPLAINTS AT THIS TIME.
--- NOTE | 2019-07-17 17:42 | Diagnostic Imaging Report ---
EXAM: CXR 1 [facility] DATE: 07/17/2019 12:00 AM INDICATION: Fever, headache ^[id number] ^[id number] COMPARISON: No comparable prior examination is available in PACS FINDINGS: Lines and tubes: Implanted cardiac device left chest with transvenous leads extending to the right atrium and right ventricle. Wire sternotomy sutures are present with surgical clips in the mediastinum. Cardiac silhouette is moderately enlarged. There is no focal pulmonary opacity. There mild pleural thickening in the lower right and left chest areas, with appearance most likely representing pleural thickening rather than small effusions. No acute bony abnormality. Slight widening of the right acromioclavicular joint may be postoperative. Upper abdomen unremarkable. IMPRESSION: Moderate cardiomegaly. No specific evidence for acute disease in the chest. Signed by: Dr. José Otero M.D. on 07/17/2019 5:39 PM
--- NOTE | 2019-07-17 17:42 | NUR ---
[facility] CALLED FOR TRANSPORT ETA 30MIN
[2019-07-17] MEDS ORDERED: SODIUM CHLORIDE 0.9% 1000ML 1,000 ML ONE (17:49)
[2019-07-17 19:38] VITALS: BP 118/57
[2019-07-17 20:20] VITALS: BP 118/57
--- NOTE | 2019-07-17 20:20 | NUR ---
Patient admitted to room 204 via stretcher. Patient alert to name, place, time, and Dx: UTI. Pt states has dysuria x3 days that is accompanied with a headache. Patient states he has urinary urgency with occasional dribbling. He has moderate movement in right knee with candidate for right knee replacement. Patient also c/o chronic back pain. Last BM 07/17, abdomen soft, round and distended. c/o dysuria, mod. Urine with normal odor. Oriented to room. Bed low and locked. Call shore within reach. Will continue to monitor.
[2019-07-17 20:34] VITALS: BP 118/57
[2019-07-17] MEDS ORDERED: LISINOPRIL10 MG (20:42)
[2019-07-17] MEDS ORDERED: METFORMIN HCL500 M1 (20:42)
[2019-07-17] MEDS ORDERED: ULTRAM 50MG50 MG (20:42)
[2019-07-17] MEDS ORDERED: IPRATROPIUM BRO30 ML IH (20:42)
[2019-07-17] MEDS ORDERED: MORPHINE SULFATE INJ 4 MG/ML INJ 1ML IV PRN (21:15)
[2019-07-17] MEDS: MORPHINE SULFATE 2 MG/ML SYR 1ML IV PRN (21:30)
[2019-07-17] MEDS: SODIUM CHLORIDE 0.9% 1000ML 1,000 ML IV SCH (21:30)
[2019-07-18] VITALS (8 sets, daily range): BP systolic 105–145; BP diastolic 54–70
[2019-07-18] MEDS: TRAMADOL HCL 50 MG TAB PO PRN (01:00)
[2019-07-18] MEDS: MORPHINE SULFATE 2 MG/ML SYR 1ML IV PRN ×2 (05:15→22:40)
[2019-07-18] MEDS: SODIUM CHLORIDE 0.9% 1000ML 1,000 ML IV SCH ×3 (06:36→17:02)
--- NOTE | 2019-07-18 06:40 | NUR ---
Patient lying in bed c/o mod post occipital pain. Morphine admin previously, no relief. Dr. Qureshi informed.
--- NOTE | 2019-07-18 07:03 | NUR ---
Dr. Qureshi ordered Tordol 15mg IV x1 now.
[2019-07-18] MEDS ORDERED: KETOROLAC TROMETHAMINE 60 MG/2 ML VIAL IM NR (07:15)
[2019-07-18] MEDS ORDERED: KETOROLAC TROMETHAMINE 30 MG/ML VIAL IM NR (08:15)
[2019-07-18] MEDS: LISINOPRIL 10 MG TAB PO SCH (08:55)
[2019-07-18] MEDS: CEFTRIAXONE SOD 1 GM/NS 50 ML 50 ML IV SCH ×2 (08:55→19:30)
[2019-07-18] MEDS: METFORMIN HCL 500 MG TAB CR PO SCH (08:55)
[2019-07-18] MEDS: CLOPIDOGREL BISULFATE 75 MG TAB PO SCH (08:55)
[2019-07-18] MEDS: ONDANSETRON HCL INJ 2MG/ML 2ML 2 MG/ML VIAL IV PRN ×2 (08:55→19:30)
[2019-07-18] MEDS: SUCRALFATE 1 GM TAB PO SCH ×3 (08:55→20:42)
[2019-07-18] MEDS ORDERED: IPRATROPIUM BROMIDE 0.03% NASAL SPRAY 30ML SCH (09:00)
[2019-07-18] MEDS ORDERED: PANTOPRAZOLE SOD 40 MG TABEC PO SCH ×2 (09:00→21:00)
[2019-07-18] MEDS ORDERED: ALPRAZOLAM 0.25 MG TAB PO SCH ×2 (09:00→21:00)
[2019-07-18] MEDS ORDERED: METOPROLOL TARTRATE 50 MG TAB PO SCH (09:00)
--- NOTE | 2019-07-18 12:35 | History and Physical ---
HISTORY OF PRESENT ILLNESS: The patient is a 74-year-old male, who came to the office yesterday with shakes and chills. The patient was found to have a UTI with possible sepsis, sent to the ER. The patient admitted for dehydration and also for urosepsis. The patient is currently stable. PAST MEDICAL HISTORY: History of hypertension, history of CAD, history of hyperlipidemia, history of multiple orthopedic problems, history of reflux esophagitis, and history of bilateral lower extremity neuropathy and anxiety. MEDICATIONS: Include: 1. Alprazolam. 2. Clopidogrel. 3. Ipratropium. 4. Ketoralac. 5. Lisinopril. 6. Metformin. 7. Metoprolol. 8. Ondansetron as needed. 9. Pantoprazole. 10. Tramadol as needed for pain. PAST SURGICAL HISTORY: History of joint replacement, history of cardiac surgeries and also history of back surgeries in the past. The patient is due for an orthopedic surgery for right knee replacement again. The patient also has a history of knee replacements. SOCIAL HISTORY: No EtOH. No IV drug abuse. No history of smoking. Lives with . REVIEW OF SYSTEMS: Negative for chest pain. Positive for fever. Positive for chills. Positive for shakes and positive for fatigue and extreme weakness. PHYSICAL EXAMINATION: VITAL SIGNS: The patient's T-max is 100, temperature is 98.1, pulse of 86, respirations of 18, blood pressure is 136/64. HEENT: Normocephalic, atraumatic. Pupils are reactive to light and accommodation. CVS: S1, S2 normal. Regular rate and rhythm. ABDOMEN: Nontender, nondistended. CVA tenderness present. EXTREMITIES: No clubbing. No cyanosis and/or no edema. ASSESSMENT AND PLAN: Urosepsis, the patient is currently on Rocephin, which will be reinstated. The patient is also complaining of neck pain. We will give him Toradol. Restart his CV medications for CAD. For his hypertension and hyperlipidemia, we will hold back on his metformin at this time. Further recommendation per clinical course. We will continue to monitor the patient. Await microbiology status and check his CBC and CMP in the morning. Further recommendation per clinical course. We will continue to monitor the patient and possible discharge in 1 to 2 days. MD RACHAEL Samano/CORBINL /[id number]
--- NOTE | 2019-07-18 15:05 | NUR ---
Visit made by the Spiritual Care Department Pastoral Visitor, Afsaneh Colvin. PV provided pastoral presence, hospitality, and supportive listening. Pastoral Visitor informed pt/family of the scope of Home Health Clinician Services and availability. JAIME ALDANA Interrelated Special Education Teacher Spiritual Care Department O: [phone] Pager: [phone] ([phone] number calling from)
--- NOTE | 2019-07-18 15:11 | NUR ---
Nutrition Screen Note RD Recommendation for Physician: -Continue cardiac diet as ordered Plan of Care: RD following, monitoring for tolerance and adequacy Nutrition reason for involvement: Nutrition Risk Trigger MST Primary Diagnose(s): UTI PMH: hypertension, CAD, hyperlipidemia, multiple orthopedic problems, reflux esophagitis, bilateral lower extremity neuropathy and anxiety Ht: 70in Wt: 217lb BMI: 31.1kg/m2 IBW: 166lb +/- 10% RD Assessment: (07/18) Chart reviewed. Labs and meds reviewed. 74yo M, who was admitted for UTI. Visited pt in the room. Pt reported good appetite without any GI complains. LBM 07/17. Pt denied any chewing or swallowing difficulty. Pt has made some lifestyle changes in order to lose weight. Current diet is appropriate and adequate. Will continue to monitor and follow. Current Diet: cardiac diet Malnutrition Evaluation (07/18/2019) The patient does not meet criteria for a specified degree of malnutrition at this time. Will re-evaluate at follow-up as appropriate. Diet Education Needs Assessment: Diet education not indicated. Per , pt was compliant with low sodium diet at home. Nutrition Care Level: low Signed: Geeta Desai, MS, RD, LD
--- NOTE | 2019-07-18 19:10 | NUR ---
Report received from morning nurse. Patient alert, lying in bed HOB 30 degrees. Denies pain at this time. Bed low and locked. Call shore within reach. Will continue to monitor.
[2019-07-18] MEDS: METOPROLOL TARTRATE 50 MG TAB PO SCH (20:42)
[2019-07-18] MEDS ORDERED: KETOROLAC TROMETHAMINE 60 MG/2 ML VIAL IM ONE (23:45)
[2019-07-19 00:48] VITALS: BP 99/54
[2019-07-19] MEDS: SODIUM CHLORIDE 0.9% 1000ML 1,000 ML IV SCH (01:02)
[2019-07-19 04:50] VITALS: BP 97/52
[2019-07-19 05:15] LABS: BASOPHILS % 0.1 % (0.0-1.0); EOSINOPHILS # (AUTO) 0.2 (0.0-0.4); EOSINOPHILS % 2.4 % (0.0-6.0); HEMATOCRIT 31.8 % (38.2-49.6); HEMOGLOBIN 10.5 g/dL (14.0-18.0); LYMPHOCYTES % 14.2 % (18.0-39.1); MEAN CORPUSCULAR HEMOGLOBIN 28.9 pg (28-32); MEAN CORPUSCULAR VOLUME 87.6 fL (81-99); MONOCYTES # (AUTO) 1.1 (0.2-0.8); MONOCYTES % 14.8 % (4.4-11.3); NEUTROPHILS # (AUTO) 4.9 (2.1-6.9); NEUTROPHILS % 68.1 % (38.7-80.0); PLATELET COUNT 111 x10e3/uL (140-360); RED BLOOD COUNT 3.63 x10e6/uL (4.3-5.7); RED CELL DISTRIBUTION WIDTH 13.7 % (11.7-14.4)
[2019-07-19 05:39] LABS: ANION GAP 11.3 mmol/L (8-16); BLOOD UREA NITROGEN 18 mg/dL (7-26); BUN/CREATININE RATIO 18 (6-25); CALCIUM 7.9 mg/dL (8.4-10.2); CARBON DIOXIDE 21 mmol/L (22-29); CHLORIDE 108 mmol/L (98-107); CREATININE, SERUM 1.02 mg/dL (0.72-1.25); EST GLOMERULAR FILTRATION RATE > 60 ML/MIN (60-); GLUCOSE 110 mg/dL (74-118); POTASSIUM 4.3 mmol/L (3.5-5.1); SODIUM 136 mmol/L (136-145)
--- NOTE | 2019-07-19 07:00 | NUR ---
RECEIVED AM REPORT FROM NURSE AND MORNING ROUNDS DONE. PT IS ALERT RESTING IN BED, NO S/S OF DISTRESS. CALL LIGHT WITHIN REACH AND INSTRUCTED PT TO CALL NURSE FOR HELP
[2019-07-19 08:17] VITALS: BP 138/63
[2019-07-19] MEDS: CLOPIDOGREL BISULFATE 75 MG TAB PO SCH (09:10)
[2019-07-19] MEDS: METOPROLOL TARTRATE 50 MG TAB PO SCH (09:10)
[2019-07-19] MEDS: SUCRALFATE 1 GM TAB PO SCH (09:11)
[2019-07-19] MEDS: METFORMIN HCL 500 MG TAB CR PO SCH (09:11)
[2019-07-19] MEDS: LISINOPRIL 10 MG TAB PO SCH (09:11)
--- NOTE | 2019-07-19 10:51 | NUR ---
Spoke with Dr. Qureshi regarding discharge plan. Informed him that pt is currently day 2 observation. He states most probably DC today. Will let CM know.
[2019-07-19] MEDS: CEFTRIAXONE SOD 1 GM/NS 50 ML 50 ML IV SCH (11:30)
[2019-07-19 12:01] VITALS: BP 132/60
--- NOTE | 2019-07-19 15:21 | NUR ---
Called and spoke with Dr. Qureshi. He states he's waiting for urine culture results from his office. He will come see pt this evening and possibly discharge home with oral abx.
[2019-07-19] MEDS: TRAMADOL HCL 50 MG TAB PO PRN (15:40)
[2019-07-19 16:16] VITALS: BP 154/67
[2019-07-19] MEDS ORDERED: KETOROLAC TROMETHAMINE 30 MG/ML VIAL IM ONE (18:15)
--- NOTE | 2019-07-19 20:33 | Progress Note ---
DATE: 07/19/2019 SUBJECTIVE: This patient came in with sepsis, 74-year-old man. The patient is currently complaining of severe headache, 10/10 in intensity, comes in about every 8-hour intervals. The patient's headache is relieved by Toradol injections. No chest pain. No shortness of breath. No nausea, vomiting, or diarrhea. No constipation. No rectal bleeding. No hematochezia. No hematemesis. PHYSICAL EXAMINATION: VITAL SIGNS: Temperature is 97.5, pulse 62, respirations of 20, blood pressure is 154/67. HEENT: Normocephalic and atraumatic. Pupils are reactive to light and accommodation. No meningeal signs present. NECK: Tenderness in the right sternocleidomastoid. ABDOMEN: Nontender and nondistended. LUNGS: Clear to auscultation bilaterally. EXTREMITIES: No clubbing, no cyanosis. Positive for decreased sensation in the lower extremities. LABORATORY VALUES: White count is normal at 7.16, hemoglobin of 10.5, hematocrit 31.8. Chemistry shows sodium 136, potassium of 4.3, BUN of 18, creatinine of 1.02, calcium was 7.9. ASSESSMENT: 1. Severe sepsis, cleared with Rocephin in the office. 2. Dehydration, corrected. 3. Hyperlipidemia. 4. Coronary artery disease. 5. Idiopathic neuropathy. PLAN: Continue on CV medications. The patient can be discharged home. We will follow up with cultures from the office. Further recommendation per clinical course. The patient also will be discharged on Robaxin for his muscle spasm in his neck. Further recommendation per clinical course. We will continue monitor the patient's. Strict ER warnings given to the patient. MD GAIL SamanoJ/MODL /[id number]
== END 2019-07-19 19:19 | disposition home or self-care (01) ==
LOC: FSED 16:47 → ERHOLD 17:06 → MED/SURG2 19:03
PROVIDERS: ADMIT Family Medicine; ATTEND Family Medicine
DX: A41.9 Sepsis, unspecified organism (principal); I10 Essential (primary) hypertension; I25.10 Atherosclerotic heart disease of native coronary artery without angina pectoris; Z95.1 Presence of aortocoronary bypass graft; E78.5 Hyperlipidemia, unspecified; K20.9 Esophagitis, unspecified; G62.9 Polyneuropathy, unspecified; R65.20 Severe sepsis without septic shock; E86.0 Dehydration; G60.9 Hereditary and idiopathic neuropathy, unspecified; N30.90 Cystitis, unspecified without hematuria
CPT/HCPCS: 36415; 71045; 80048; 80053; 81003; 83605; 85025 ×2; 85610; 87086; 99284; G0378 ×3; J0696 ×2; J1885 ×4; J2270 ×2; J2405; J7030 ×3; J7040; S0164

== ENCOUNTER → 2021-08-26 | Outpatient (CLI) | payer MEDICARE, OTHER ==
[~2021-08-26] MED LIST changes: +DIATRIZOATE MEGL/DIATRIZOA SOD 30 ML BTL PO ONE; +IOPAMIDOL 370 MG/ML 200 ML INFUS..BTL INJ ONE; +IPRATROPIUM BRO30 ML IH; +LISINOPRIL10 MG; +METFORMIN HCL500 M1; +SODIUM CHLORIDE 0.9% 50ML 50 ML ONE; +ULTRAM 50MG50 MG
[2021-08-26 16:01] LABS: CREATININE, SERUM 1.13 mg/dL (0.72-1.25)
== END ==
LOC: CT 15:06
PROVIDERS: ATTEND Internal Medicine Gastroenterology
DX: K21.00 Gastro-esophageal reflux disease with esophagitis, without bleeding (principal); R14.0 Abdominal distension (gaseous)
CPT/HCPCS: 36415; 74177; 82565; 84520; Q9967

== ENCOUNTER → 2021-09-12 | Outpatient (CLI) | payer MEDICARE, OTHER ==
[~2021-09-12] MED LIST changes: -DIATRIZOATE MEGL/DIATRIZOA SOD 30 ML BTL PO ONE; -IOPAMIDOL 370 MG/ML 200 ML INFUS..BTL INJ ONE; -SODIUM CHLORIDE 0.9% 50ML 50 ML ONE
== END ==
LOC: RAD 11:19
PROVIDERS: ATTEND Family Medicine
DX: M25.532 Pain in left wrist (principal); M79.642 Pain in left hand

== ENCOUNTER 2022-05-12 14:18 | Emergency (ER) | payer MEDICARE, OTHER ==
[~2022-05-12] VITALS: Ht 177.8 cm; Wt 98.0 kg
[2022-05-12] MEDS ORDERED: SODIUM CHLORIDE 0.9% 1000ML 1,000 ML IV ONE (15:45)
[2022-05-12 16:03] LABS: BASOPHILS # (AUTO) 0.1 (0.0-0.1); BASOPHILS % 0.9 % (0.0-1.0); EOSINOPHILS # (AUTO) 0.4 (0.0-0.4); EOSINOPHILS % 6.3 % (0.0-6.0); HEMATOCRIT 38.5 % (38.2-49.6); HEMOGLOBIN 12.5 g/dL (14.0-18.0); LYMPHOCYTES # (AUTO) 1.3 (1.0-3.2); LYMPHOCYTES % 19.9 % (18.0-39.1); MEAN CORPUSCULAR HEMOGLOBIN 27.8 pg (28-32); MEAN CORPUSCULAR HGB CONC 32.5 g/dL (31-35); MEAN CORPUSCULAR VOLUME 85.7 fL (81-99); MONOCYTES # (AUTO) 0.8 (0.2-0.8); MONOCYTES % 11.8 % (4.4-11.3); NEUTROPHILS # (AUTO) 4.1 (2.1-6.9); NEUTROPHILS % 60.5 % (38.7-80.0); PLATELET COUNT 178 x10e3/uL (140-360); RED BLOOD COUNT 4.49 x10e6/uL (4.3-5.7); RED CELL DISTRIBUTION WIDTH 14.1 % (11.7-14.4)
[2022-05-12 16:32] LABS: ALBUMIN 2.7 g/dL (3.5-5.0); ALBUMIN/GLOBULIN RATIO 0.6 (0.8-2.0); ANION GAP 12.5 mmol/L (8-16); CALCIUM 8.1 mg/dL (8.4-10.2); CREATININE, SERUM 1.35 mg/dL (0.72-1.25); POTASSIUM 4.5 mmol/L (3.5-5.1)
[2022-05-12 16:44] LABS: CLARITY,URINE SL CLOUDY (CLEAR); COLOR,URINE YELLOW (YELLOW)
[2022-05-12 16:45] LABS: KETONES,URINE NEGATIVE (NEGATIVE); LEUKOCYTE ESTERASE ,URINE NEGATIVE (NEGATIVE); NITRITE,URINE NEGATIVE (NEGATIVE); PROTEIN,URINE DIPSTICK NEGATIVE (NEGATIVE); URINE UROBILINOGEN 0.2 mg/dL (0.2 - 1)
[2022-05-12 16:58] LABS: BACTERIA,URINE RARE /HPF; MUCUS,URINE FEW (RARE); RBC,URINE 0-5 /HPF (0-5); WBC,URINE (MAN) 0-5 /HPF (0-5)
[2022-05-12 19:59] LABS: PLATELET ESTIMATE ADEQUATE; PLATELET MORPHOLOGY COMMENT NORMAL; RBC MORPHOLOGY COMMENT NORMAL
== END 2022-05-12 17:52 | disposition home or self-care (01) ==
LOC: ER 15:25
DX: R33.9 Retention of urine, unspecified (principal); I10 Essential (primary) hypertension; E11.9 Type 2 diabetes mellitus without complications; F41.9 Anxiety disorder, unspecified; Z95.0 Presence of cardiac pacemaker; Z95.5 Presence of coronary angioplasty implant and graft
CPT/HCPCS: 36415; 51702; 80053; 81001; 85025; 99284; J7030; 51700